=== PATIENT | male | born 1970 | race Caucasian/White ===

== ENCOUNTER 2024-08-24 14:10 | Outpatient (OUT) | payer BC, SELFPAY ==
--- OUTSIDE RECORDS SUMMARY | 2024-08-17 10:00 | XMS_ITS | Encounter Summary ---
Author Organization [facility] tem Address [id number] [address] [place] [address] Care Team Providers Care Auditor Supervisor Name Role Phone Guille Jackson MD Primary Care Provider [phone] Reason for Referral * Consultation (Routine) - Authorized Specialty Diagnoses / Procedures Referred By Contac t Referred To Contact Pain Medicine Diagnoses Herniation of cervical intervertebral disc with radiculopathy Guille Jackson MD [address] [place] [address], [address] [place] [address] Phone: tel: fax: Farheen Cary MD [address] [place] [address] Phone: tel: fax: Referral ID Status Reason Start Date Expiration Date V isits Requested Visits Authorized [id number] Authorized 08/17/2024 08/17/2025 1 1 Reason for Visit * Reason Comments Shoulder Pain Been ongoing for few months. Encounter Details Date Type Department Care Team (Latest Contact Info) Description 08/17/2024 10:00 AM EDT Office Visit [facility] [address] [place] [address] [address] [place] [phone] Guille Jackson MD [address] [place] [address], [address] [place] [address] Herniation of cervical intervertebral disc with radiculopathy (Primary Dx) Social History Tobacco Use Types Packs/Day Years Used Date Smoking Tobacco: Former Cigarettes Q uit: 2000 Smokeless Tobacco: Former Alcohol Use Standard Drinks/Week Comments Yes 0 (1 standard drink = 0.6 oz pur e alcohol) AUDIT-C Answer Date Recorded Q1: How often do you have a drink containing alc ohol? Monthly or less 02/05/2020 Q2: How many drinks containi ng alcohol do you have on a typical day when you are drinking? 1 or 2 02/05/2020 Q3: How often do you have si x or more drinks on one occasion? Never 02/05/2020 Overall Financial Resource Strain (CARDIA) Answe r Date Recorded How hard is it for you to pa y for the very basics like food, housing, medical care, and heating? Not hard at all 08/17/2024 PHQ-2 Answer Date Recorded Total Score 0 03/12/2023 PRAPARE - Transportation Answer Date Re corded In the past 12 months, has l ack of transportation kept you from medical appointments or from getting medications? No 08/02 In the past 12 months, has l ack of transportation kept you from meetings, work, or from getting things needed for daily living? No 08/17/2024 Housing Instability Answer Date Recorde d Are you worried or concerned that in the next two months you may not have stable housing that you own, rent or stay in as a part of a household? No 08/17/2024 Childcare Answer Date Recorded Childcare Unknown 08/13/2018 Employment Answer Date Recorded Employment Unknown 08/13/2018 Hunger Screening Answer Date Recorded Within the past 12 months we worried whether our food would run out before we got money to buy more. Never True 08/17/2024 Within the past 12 months th e food we bought just didn't last and we didn't have money to get more. Never True 08/17/2024 Purpose - Life Answer Date Recorded Purpose and direction in life Unknown Sex and Gender Information Value Date Recorded Sex Assigned at Not on file Legal Sex Male 11:29 AM EDT Gender Identity Not on file Sexual Orientation Not on file documented as of this encounter Last Filed Vital Signs Vital Sign Reading Time Taken Comments Blood Pressure 154/98 08/17/2024 9:50 AM EDT Pulse 99 08/17/2024 9:50 AM EDT Temperature 36.4 C (97.5 F) 08/17/2024 9:50 AM EDT Respiratory Rate - - Oxygen Saturation 97% 08/17/2024 9:50 AM EDT Inhaled Oxygen Concentration - - Weight 101.2 kg (223 lb) 08/17/2024 9:50 AM EDT Height 172.7 cm (5' 8 ) 08/17/2024 9:50 AM EDT Body Mass Index 33.91 08/17/2024 9:50 AM EDT documented in this encounter Progress Notes * Guille Jackson MD - 08/17/2024 10:00 AM EDT Subjective Patient ID: Jaskaran Nolen is a 54 y.o. male. He continues having radicular type pain in his left shoulder area. MRI showed no definite surgical issue. A course of steroids did not really make much difference. He has not had any strength loss. Comes in to discuss possibly seeing pain management. The following portions of the patient's history were reviewed and updated as appropriate: allergies, current medications, past medical history, past social history, past surgical history, and problemlist. Review of Systems Objective Physical Exam Constitutional: Comments: He is not acutely in distress. Neurological: Comments: No fixed neurological deficit in the left upper extremity Assessment/Plan The physical activity that he does at work aggravates this. He is going to be off the next couple of weeks pending input from pain management. Tentative return to work 08/31/24. Diagnoses and all orders for this visit: Herniation of cervical intervertebral disc with radiculopathy - Ambulatory referral to Pain Management ([facility]); Future documented in this encounter Plan of Treatment Upcoming Encounters Date Type Department Care Team (Late st Contact Info) Description 10/22/2024 2:45 PM EDT Office Visit [facility] [address] [place] [address] [address] [place] [address] Guille Jackson MD [address] [place] [address], [address] [place] [address] Scheduled Referrals Name Type Priority Associated Diagnoses Orde r Schedule Ambulatory referral to Pain Management (Non[facility]) Outpatient Referral Routine Herniation of cervical intervertebral disc with radiculopathy 1 Occurrences starting 08/17/2024 until 08/17/2025 documented as of this encounter Visit Diagnoses Diagnosis Herniation of cervical intervertebral disc with radiculopathy- Primary documented in this encounter Additional Health Concerns Assessment Noted Time PHQ-9 Depression Total Score: 0 03/12/19 24 8:58 AM EST A Body Mass Index follow-up plan has been documented for the patient 09/22/2020 10:16 AM EDT documented as of this encounter Care Teams Auditor Supervisor Relationship Specialty Start Date End Date Guille Jackson MD [address] [facility], [address] [place] [address] PCP - General Pediatrics 11/07/18 documented as of this encounter
--- OUTSIDE RECORDS SUMMARY | 2024-08-24 14:13 | XMS_ITS | Clinical Summary ---
Author Organization [facility] Healthcare Address [address] [place] [address] Care Team Providers Care Er Tech Name Role Phone Guille Jackson MD Primary Care Provider [phone] Allergies No known active allergies Medications ALPRAZolam (Xanax) 0.5 MG tablet every 12 (twelve) hours. 06/13/2022 Active Otezla 30 MG tablet every 12 (twelve) hours. Active atorvastatin (Lipitor) 20 MG tablet Take 20 mg by mouth in the morning. 10/16/2021 Active Creatine powder as directed Ac tive naproxen (Naprosyn) 500 MG tablet every 12 (twelve) hours. Active omeprazole (PriLOSEC) [address] capsule 1 (one) time each day at the same time. 10/16/2021 Active Whey Protein powder Take by mouth. Active Active Problems Problem Noted Date Diagnosed Date Psoriasis 08/21/2022 Contracture, left ankle 08/21/2022 Herniation of cervical inter vertebral disc with radiculopathy 05/23/2021 Overview (08/21/2022): Added automatically from request for surgery [id number] Gastroesophageal reflux disease without esophagi tis 02/05/2020 Anxiety 02/05/2020 Family History Medical History Relation Name Comments Alcohol abuse Father Bryan Nolen Hypertension Father Bryan Nolen Asthma Mother Opal Nolen Cancer Mother Opal Nolen COPD Sister 1 Suzette Evans COPD Sister 2 Larisa Iam COPD Sister 3 Amber Vitale Relation Name Status Comments Father Bryan Nolen Mother Opal Nolen Sister 1 Suzette Badillohip Sister 2 Larisa Vitale Sister 3 Amber Vitale Social History Tobacco Use Types Packs/Day Years Used Date Smoking Tobacco: Former Cigarettes 1 19 0 03/04/1983 - 03/04/2002 Alcohol Use Standard Drinks/Week Comments Yes 0 (1 standard drink = 0.6 oz pure alcohol) Occasionally,3-4 drinks less than monthly in the past year AUDIT-C Answer Date Recorded Q1: How often do you have a drink containing alc ohol? Monthly or less 04/30/2023 Q2: How many drinks containi ng alcohol do you have on a typical day when you are drinking? 3 or 4 04/30/2023 Q3: How often do you have si x or more drinks on one occasion? Monthly 04/30/2023 Sex and Gender Information Value Date Recorded Sex Assigned at Male 08/20/2022 10:23 AM EDT Legal Sex Male 11:25 PM EDT Gender Identity Male 08/20/2022 10:23 AM EDT Sexual Orientation Not on file Last Filed Vital Signs Vital Sign Reading Time Taken Comments Blood Pressure - - Pulse - - Temperature - - Respiratory Rate - - Oxygen Saturation - - Inhaled Oxygen Concentration - - Weight 104 kg (230 lb) 05/01/2023 9:48 AM EST Height 172.7 cm (5' 8 ) 05/01/2023 9:48 AM EST Body Mass Index 34.97 05/01/2023 9:48 AM EST Plan of Treatment Health Maintenance Due Date Last Done Comments CT Colonography 1970 Colonoscopy 1970 Colorectal Cancer Screening 1970 FIT-DNA 1970 FIT 1970 FOBT 1970 Sigmoidoscopy 1970 Influenza Vaccine (Season Ended) 2024 Insurance BCBS Care Teams Er Tech Relationship Specialty Start Date End Date Guille Jackson MD PCP - General Family Medicine 08/20/22
--- OUTSIDE RECORDS SUMMARY | 2024-08-24 14:13 | XMS_ITS | Encounter Summary ---
Author Organization [employer] tem Address [facility] [id number] [address] [place] [address] Care Team Providers Care Salvage Engineering Technician Name Role Phone Guille Jackson MD Primary Care Provider [phone] Encounter Details Date Type Department Care Team (Late st Contact Info) Description 05/17/2021 Orders Only [facility] [address] [place] [address] 1 [place] [phone] Guille Jackson MD [address] [place] [address], [address] [place], [place] [phone] Cervical myelopathy ([facility]) Social History Tobacco Use Types Packs/Day Years Used Date Smoking Tobacco: Former Cigarettes Q uit: 2001 Smokeless Tobacco: Former Alcohol Use Standard Drinks/Week [...] more drinks on one occasion? Never 02/05/2020 PHQ-2 Answer Date Recorded Total Score 0 12/22/2020 Childcare Answer Date Recorded Childcare Unknown 08/13/2018 Employment Answer Date Recorded Employment Unknown 08/13/2018 Purpose - Life Answer Date Recorded Purpose and direction in life Unknown Sex and Gender Information Value Date Recorded Sex Assigned at Not on file Legal Sex Male 11:29 AM EDT Gender Identity Not on file Sexual Orientation Not on file COVID-19 Exposure Response Date Recorded In the last month, have you been in contact with someone who was confirmed or suspected to have Coronavirus / COVID-19? No / Unsure 05/01/2021 8:14 AM EST documented as of this encounter Plan of Treatment Upcoming Encounters Date Type Department Care Team (Late st Contact Info) Description 10/22/2024 2:45 PM EDT Office Visit [facility] [address] [place] [address] [address] [place] [phone] Guille Jackson MD [address] [place] [address], [address] [place] [address] documented as of this encounter Procedures Procedure Name Priority Date/Time Associated Diagnosis Comments AMB REFERRAL TO NEUROSURGERY Routine 05/17/2021 Cervical myelopathy ([facility]) documented in this encounter Results * Ambulatory referral to Neurosurgery (05/17/2021) 05/17/2021 us Guille Jackson MD OUTPATIENT REFERRAL ORDERABLE S Final Result MANUALLY TRANSCRIBED RESULTS documented in this encounter Visit Diagnoses Diagnosis Cervical myelopathy ([facility]) Cervical spondylosis with myelopathy documented in this encounter Additional Health Concerns Assessment Noted Time PHQ-9 Depression Total Score: 0 12/23/19 21 10:00 AM EDT A Body Mass Index follow-up plan has been documented for the patient 09/22/2020 10:16 AM EDT documented as of this encounter Care Teams Salvage Engineering Technician Relationship Specialty Start Date End Date Guille Jackson MD [facility], [address] [place] [address] PCP - General Pediatrics 11/07/18 documented as of this encounter
--- OUTSIDE RECORDS SUMMARY | 2024-08-24 14:13 | XMS_ITS | Encounter Summary ---
Author Organization [employer] tem Address [facility] [id number] [address] [place] [address] Care Team Providers Care Division Order Analyst Name Role Phone Guille Jackson MD Primary Care Provider Encounter Details Date Type Department Care Team (Late st Contact Info) Description 03/23/2021 Orders Only [facility] [address] [place] [address] 1 [place] [phone] Guille Jackson MD [address] [place] [address], [address] [place], [place] [phone] Right foot pain Social History Tobacco Use Types Packs/Day Years [...] have Coronavirus / COVID-19? No / Unsure 03/13/2021 8:44 AM EST documented as of this encounter Plan of Treatment Upcoming Encounters Date Type Department Care Team (Late st Contact Info) Description 10/22/2024 2:45 PM EDT Office Visit [facility] [address] [place] [address] [address] [place] [address] Guille Jackson MD [facility], [address] [place], [place] [phone] documented as of this encounter Procedures Procedure Name Priority Date/Time Associated Diagnosis Comments AMB REFERRAL TO PODIATRY Routine 03/22/2021 Right foot pain documented in this encounter Results * Ambulatory referral to Podiatry (03/22/2021) 03/22/2021 us Guille Jackson MD OUTPATIENT REFERRAL ORDERABLE S Final Result MANUALLY TRANSCRIBED RESULTS documented in this encounter Visit Diagnoses Diagnosis Right foot pain Pain in soft tissues of limb documented in this encounter Additional Health Concerns Assessment Noted Time PHQ-9 Depression Total Score: 0 12/23/19 21 10:00 AM EDT A Body Mass Index follow-up plan has been documented for the patient 09/22/2020 10:16 AM EDT documented as of this encounter Care Teams Division Order Analyst Relationship Specialty Start Date End Date Guille Jackson MD [facility], [address] [place], [place] [phone] PCP - General Pediatrics 11/07/18 documented as of this encounter
--- OUTSIDE RECORDS SUMMARY | 2024-08-24 14:13 | XMS_ITS | Encounter Summary ---
Author Organization [employer] tem Address [facility] [id number] [address] [place] [address] Care Team Providers Care Director Of Hospitality Name Role Phone Guille Jackson MD Primary Care Provider [phone] Encounter Details Date Type Department Care Team (Late st Contact Info) Description 09/19/2023 Refill [facility] [address] [place] [address] 1 [place] [phone] Guille Jackson MD [address] [place] [address], [address] [place], [place] [phone] Social History Tobacco Use Types Packs/Day Years [...] Answer Date Recorded Total Score 0 03/12/2023 Childcare Answer Date Recorded Childcare Unknown 08/13/2018 Employment Answer Date Recorded Employment Unknown 08/13/2018 Hunger Screening Answer Date Recorded Within the past 12 months we worried whether our food would run out before we got money to buy more. Never True 03/12/2023 Within the past 12 months th e food we bought just didn't last and we didn't have money to get more. Never True 03/12/2023 Purpose - Life Answer Date Recorded Purpose and direction in life Unknown Sex and Gender Information Value Date Recorded Sex Assigned at Not on file Legal Sex Male 11:29 AM EDT Gender Identity Not on file Sexual Orientation Not on file documented as of this encounter Plan of Treatment Upcoming Encounters Date Type Department Care Team (Late st Contact Info) Description 10/22/2024 2:45 PM EDT Office Visit [facility] [address] [place] [address] [address] [place] [address] Guille Jackson MD [address] [place] [address], [address] [place], [place] [phone] documented as of this encounter Visit Diagnoses Not on filedocumented in this encounter Additional Health Concerns Assessment Noted Time PHQ-9 Depression Total Score: 0 03/12/19 24 8:58 AM EST A Body Mass Index follow-up plan has been documented for the patient 09/22/2020 10:16 AM EDT documented as of this encounter Care Teams Director Of Hospitality Relationship Specialty Start Date End Date Guille Jackson MD [address] [place] [address], [address] [place] [address] PCP - General Pediatrics 11/07/18 documented as of this encounter
--- OUTSIDE RECORDS SUMMARY | 2024-08-24 14:13 | XMS_ITS | Encounter Summary ---
Author Organization [employer] s tem Address [facility] [id number] [address] [place] [address] Care Team Providers Care Executive Pilot Name Role Phone Guille Jackson MD Primary Care Provider [phone] Encounter Details Date Type Department Care Team (Late st Contact Info) Description 07/09/2023 Refill [facility] [address] [place] [address] 1 [place] [phone] Guille Jackson MD [address] [place] [address], [address] [place], [place] [phone] Social History Tobacco Use Types Packs/Day Years [...] EDT Office Visit [facility] [address] [place] [address] [address] [place] [address] Guille Jackson MD [address] [place] [address], [address] [place], [place] [phone] documented as of this encounter Visit Diagnoses Not on filedocumented in this encounter Additional Health Concerns Assessment Noted Time PHQ-9 Depression Total Score: 0 03/12/19 24 8:58 AM EST A Body Mass Index follow-up plan has been documented for the patient 09/22/2020 10:16 AM EDT documented as of this encounter Care Teams Executive Pilot Relationship Specialty Start Date End Date Guille Jackson MD [address] [place] [address], [address] [place] [address] PCP - General Pediatrics 11/07/18 documented as of this encounter
--- OUTSIDE RECORDS SUMMARY | 2024-08-24 14:13 | XMS_ITS | Encounter Summary ---
Author Organization [employer] Address [id number] [address] [place] [address] Care Team Providers Care Weight Analyst Name Role Phone Guille Jackson MD Primary Care Provider [phone] Reason for Visit * Reason Onset Date Comments Med Refill 10/09/2023 Encounter Details Date Type Department Care Team (Late st Contact Info) Description 10/09/2023 Refill [facility] [address] [place] [phone] Guille Jackson MD [address] [place] [address], [address] [place], [place] [phone] Social History Tobacco Use Types Packs/Day Years [...] on file documented as of this encounter Miscellaneous Notes * Telephone Encounter - Geri Vidal CMA - 10/09/2023 5:52 AM EDT Duplicate and patient needs an appointment documented in this encounter Plan of Treatment Upcoming Encounters Date Type Department Care Team (Late st Contact Info) Description 10/22/2024 2:45 PM EDT Office Visit [facility] [address] [place] [address] [address] [place] [phone] Guille Jackson MD [address] [place] [address], [address] [place], [place] [phone] documented as of this encounter Visit Diagnoses Not on filedocumented in this encounter Additional Health Concerns Assessment Noted Time PHQ-9 Depression Total Score: 0 03/12/19 24 8:58 AM EST A Body Mass Index follow-up plan has been documented for the patient 09/22/2020 10:16 AM EDT documented as of this encounter Care Teams Weight Analyst Relationship Specialty Start Date End Date Guille Jackson MD [address] [place] [address], [address] [place] [address] PCP - General Pediatrics 11/07/18 documented as of this encounter
--- OUTSIDE RECORDS SUMMARY | 2024-08-24 14:13 | XMS_ITS | Encounter Summary ---
Author Organization [facility] [employer] Address [facility] [id number] [address] [place] [address] Care Team Providers Care Microsoft Windows Engineer Name Role Phone Guille Jackson MD Primary Care Provider [phone] Reason for Visit * Reason Comments Med Refill Encounter Details Date Type Department Care Team (Late st Contact Info) Description 08/21/2021 Refill [facility] [address] [place] [phone] Guille Jackson MD [address] [place] [address], [address] [place], [place] [phone] Social History Tobacco Use Types Packs/Day Years [...] Telephone Encounter - Geri Vidal CMA - 08/21/2021 1:07 AM EDT Patient needs an appointment and labs for further refill documented in this encounter Plan of Treatment Upcoming Encounters Date Type Department Care Team (Late st Contact Info) Description 10/22/2024 2:45 PM EDT Office Visit [facility] [address] [place] [address] [address] [place] [phone] Guille Jackson MD [address] [place] [address], [address] [place] [address] documented as of this encounter Visit Diagnoses Not on filedocumented in this encounter Additional Health Concerns Assessment Noted Time PHQ-9 Depression Total Score: 0 12/23/19 21 10:00 AM EDT A Body Mass Index follow-up plan has been documented for the patient 09/22/2020 10:16 AM EDT documented as of this encounter Care Teams Microsoft Windows Engineer Relationship Specialty Start Date End Date Guille Jackson MD [address] [place] [address], [address] [place], [place] [phone] PCP - General Pediatrics 11/07/18 documented as of this encounter
--- OUTSIDE RECORDS SUMMARY | 2024-08-24 14:13 | XMS_ITS | Encounter Summary ---
Author Organization [employer] Address [facility] [place]-[id number] [address] [place] [address] Care Team Providers Care Roll Icer Name Role Phone Guille Jackson MD Primary Care Provider [phone] Reason for Visit * Reason Onset Date Comments Med Refill 09/16/2023 Encounter Details Date Type Department Care Team (Late st Contact Info) Description 09/16/2023 Refill [facility] [address] [place] [phone] Guille Jackson MD [address] [place] [address], 1 [place], [place] [phone] Anxiety Social History Tobacco Use Types Packs/Day Years [...] Telephone Encounter - Geri Vidal CMA - 09/16/2023 7:11 PM EDT Phone conversation, [facility] documented in this encounter Plan of Treatment Upcoming Encounters Date Type Department Care Team (Late st Contact Info) Description 10/22/2024 2:45 PM EDT Office Visit [facility] [address] [place] [address] [address] [place] [address] Guille Jackson MD [address] [place] [address], [address] [place] [phone] documented as of this encounter Visit Diagnoses Diagnosis Anxiety Anxiety state, unspecified documented in this encounter Additional Health Concerns Assessment Noted Time PHQ-9 Depression Total Score: 0 03/12/19 24 8:58 AM EST A Body Mass Index follow-up plan has been documented for the patient 09/22/2020 10:16 AM EDT documented as of this encounter Care Teams Roll Icer Relationship Specialty Start Date End Date Guille Jackson MD [address] [place] [address], [address] [place] [address] PCP - General Pediatrics 11/07/18 documented as of this encounter
--- OUTSIDE RECORDS SUMMARY | 2024-08-24 14:13 | XMS_ITS | Encounter Summary ---
Author Organization [facility] Address [address] [place] [address] Care Team Providers Care Sewage Plant Operator Name Role Phone Guille Jackson MD Primary Care Provider [phone] Encounter Details Date Type Department Care Team (Late st Contact Info) Description 05/21/2023 Abstract [facility] [address] [place] [phone] Darrell Perez, DPM [address] [place] [address] Social History Tobacco Use Types Packs/Day Years [...] AM EDT Sexual Orientation Not on file documented as of this encounter Plan of Treatment Not on file documented as of this encounter Visit Diagnoses Not on filedocumented in this encounter Care Teams Sewage Plant Operator Relationship Specialty Start Date End Date Guille Jackson MD PCP - General Family Medicine 08/20/22 documented as of this encounter
--- OUTSIDE RECORDS SUMMARY | 2024-08-24 14:13 | XMS_ITS | Encounter Summary ---
Author Organization [facility] Cuffed and Wanted s tem Address [id number] [address] [place] [address] Care Team Providers Care Acid Cleaner Name Role Phone Guille Jackson MD Primary Care Provider [phone] Encounter Details Date Type Department Care Team (Late st Contact Info) Description 01/31/2021 Orders Only [facility] [address] [phone] External, Scanning Provider Social History Tobacco Use Types Packs/Day Years [...] EDT Office Visit [facility] [address] [place] [address] [address] [place] [phone] Guille Jackson MD [address] [place] [address], [address] [place], [place] [id number] documented as of this encounter Procedures Procedure Name Priority Date/Time Associated Diagnosis Comments HM COLONOSCOPY Routine 10/10/2020 documented in this encounter Results * HM COLONOSCOPY (10/10/2020) 10/10/2020 us Scanning Provider External HEALTH MAINTENANCE Fi nal Result MANUALLY TRANSCRIBED RESULTS documented in this encounter Visit Diagnoses Not on filedocumented in this encounter Additional Health Concerns Infection Onset Date Last Indicated Resolved Time COVID-19 Positive 01/19/2021 01/19/2021 02/09/2021 11:12 PM EST Assessment Noted Time PHQ-9 Depression Total Score: 0 12/23/19 10:00 AM EDT A Body Mass Index follow-up plan has been documented for the patient 09/22/2020 10:16 AM EDT documented as of this encounter Care Teams Acid Cleaner Relationship Specialty Start Date End Date Guille Jackson MD [facility], [address] [place] [address] PCP - General Pediatrics 11/07/18 documented as of this encounter
--- OUTSIDE RECORDS SUMMARY | 2024-08-24 14:13 | XMS_ITS | Encounter Summary ---
Author Organization [facility] Address [id number] [address] [place] [address] Care Team Providers Care Night Patrol Inspector Name Role Phone Guille Jackson MD Primary Care Provider [phone] Encounter Details Date Type Department Care Team (Late st Contact Info) Description 12/12/2020 Orders Only [facility] [address] [phone] External, Scanning Provider Social History Tobacco Use [...] PHQ-2 Answer Date Recorded Total Score 0 02/05/2020 Childcare Answer Date Recorded Childcare Unknown 08/13/2018 [...] EDT Office Visit [facility] [address] [place] [address] [address] [place] [address] Guille Jackson MD [address] [place] [address], [address] [place] [address] documented as of this encounter Procedures Procedure Name Priority Date/Time Associated Diagnosis Comments SARS COV 2 (COVID-19) STAT 12/02/2020 documented in this encounter Results * SARS COV 2 (COVID-19) (12/02/2020) EXTERNAL SARS COV 2 Negative Negative MANUALLY TRANSCRIBED RESULTS Comment:RESULT ATTACHED TO U RGENT CARE VISIT NASOPHARYNGEAL 12/02/2020 us Scanning Provider External MICROBIOLOGY - GENERA L ORDERABLES Final Result MANUALLY TRANSCRIBED RESULTS documented in this encounter Visit Diagnoses Not on filedocumented in this encounter Additional Health Concerns Infection Onset Date Last Indicated Resolved Time COVID-19 Positive 01/19/2021 01/19/2021 02/09/2021 11:12 PM EST Assessment Noted Time PHQ-9 Depression Total Score: 0 02/05/20 10:12 AM EST A Body Mass Index follow-up plan has been documented for the patient 09/22/2020 10:16 AM EDT documented as of this encounter Care Teams Night Patrol Inspector Relationship Specialty Start Date End Date Guille Jackson MD [address] [place] [address], [address] [place] [address] PCP - General Pediatrics 11/07/18 documented as of this encounter
--- OUTSIDE RECORDS SUMMARY | 2024-08-24 14:13 | XMS_ITS | Encounter Summary ---
Author Organization [facility] Cl[employer] s tem Address [id number] [address] [place] [address] Care Team Providers Care Proration Clerk Name Role Phone Guille Jackson MD Primary Care Provider [phone] Encounter Details Date Type Department Care Team (Late st Contact Info) Description 02/17/2020 Orders Only [facility] [address] [phone] External, Scanning Provider Social History Tobacco Use Types Packs/Day Years Used Date Smoking Tobacco: Former Smokeless Tobacco: Former Alcohol Use Standard Drinks/Week [...] Employment Answer Date Recorded Employment Unknown 08/13/2018 Sex and Gender Information Value Date Recorded Sex Assigned at Not on file Legal Sex Male 11:29 AM EDT Gender Identity Not on file Sexual Orientation Not on file COVID-19 Exposure Response Date Recorded In the last month, have you been in contact with someone who was confirmed or suspected to have Coronavirus / COVID-19? No / Unsure 02/05/2020 9:11 AM EST documented as of this encounter Plan of Treatment Upcoming Encounters Date Type Department Care Team (Late st Contact Info) Description 10/22/2024 2:45 PM EDT Office Visit [facility] [address] [place] [address] [address] [place] [address] Guille Jackson MD [address] [place] [address], [address] [place], [place] [phone] documented as of this encounter Procedures Procedure Name Priority Date/Time Associated Diagnosis Comments SARS COV 2 (COVID-19) Routine 02/16/2020 documented in this encounter Results * SARS COV 2 (COVID-19) (02/16/2020) EXTERNAL SARS COV 2 Negative Negative MANUALLY TRANSCRIBED RESULTS NASOPHARYNGEAL 02/16/2020 Narrative MANUALLY TRANSCRIBED RESULTS - 02/16/2020 Result with urgent care note us Scanning Provider External MICROBIOLOGY - GENERA L ORDERABLES Final Result MANUALLY TRANSCRIBED RESULTS documented in this encounter Visit Diagnoses Not on filedocumented in this encounter Additional Health Concerns Infection Onset Date Last Indicated Resolved Time COVID-19 Positive 01/19/2021 01/19/2021 02/09/2021 11:12 PM EST Assessment Noted Time PHQ-9 Depression Total Score: 0 02/05/20 10:12 AM EST documented as of this encounter Care Teams Proration Clerk Relationship Specialty Start Date End Date Guille aJckson MD [address] [place] [address], [address] [place], [place] [phone] PCP - General Pediatrics 11/07/18 documented as of this encounter
--- OUTSIDE RECORDS SUMMARY | 2024-08-24 14:13 | XMS_ITS | Encounter Summary ---
Author Organization [facility] tem Address [facility]-[id number] [address] [place] [address] Care Team Providers Care Auto Air Conditioning Installer Name Role Phone Guille Jackson MD Primary Care Provider [phone] Encounter Details Date Type Department Care Team (Late st Contact Info) Description 03/01/2021 Telephone [facility] [address] [phone] Geri Vidal CMA Social History Tobacco Use Types Packs/Day Years [...] have Coronavirus / COVID-19? No / Unsure 02/16/2021 11:12 AM EST documented as of this encounter Plan of Treatment Upcoming Encounters Date Type Department Care Team (Late st Contact Info) Description 10/22/2024 2:45 PM EDT Office Visit [facility] [address] [place] [address] [address] [place] [phone] Guille Jackson MD [address] [place] [address], [address] [place], [place] [phone] documented as of this encounter Visit Diagnoses Not on filedocumented in this encounter Additional Health Concerns Assessment Noted Time PHQ-9 Depression Total Score: 0 12/23/19 10:00 AM EDT A Body Mass Index follow-up plan has been documented for the patient 09/22/2020 10:16 AM EDT documented as of this encounter Care Teams Auto Air Conditioning Installer Relationship Specialty Start Date End Date Guille Jackson MD [address] [place] [address], [address] [place], [place] [phone] PCP - General Pediatrics 11/07/18 documented as of this encounter
--- OUTSIDE RECORDS SUMMARY | 2024-08-24 14:13 | XMS_ITS | Clinical Summary ---
Author Organization [employer] Address [id number] [address] [place] [address] Care Team Providers Care Business Consultant Name Role Phone Guille Jackson MD Primary Care Provider [phone] Allergies No known active allergies Medications apremilast (OTEZLA) 30 mg tablet Take 1 tablet (30 mg total) by mouth in the morning and 1 tablet (30 mg total) before bedtime. Active omeprazole (PriLOSEC) 20 mg capsule TAKE 1 CAPSULE DAILY 90 capsule 1 03/31/19 25 Active ALPRAZolam (XANAX) 0.5 mg tabletIndications :Anxiety Take 1 tablet (0.5 mg total) by mouth nightly as needed for anxiety. 30 tablet 2 06/13/19 25 Active cyclobenzaprine (FLEXERIL) 10 mg tabletIndications :Herniation of cervical intervertebral disc with radiculopathy Take 1 tablet (10 mg total) by mouth 3 (three) times a day as needed for muscle spasms. 15 tablet 07/11/19 25 Active atorvastatin (LIPITOR) 20 mg tablet Take 1 tablet (20 mg total) by mouth in the morning. 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 05/23/2021 Overview (05/23/2021): Added automatically from request for surgery [id number] Anxiety 02/05/2020 Gastroesophageal reflux disease without esophagi tis 02/05/2020 Psoriasis Resolved Problems Problem Noted Date Diagnosed Date Resolved Date Screening for colon cancer 09/22/2020 0 04/23/2024 Encounters Date Type Department Care Team Description 08/17/2024 10:00 AM EDT Office Visit [facility] [address] [place] [address] Guille Jackson MD Herniation of cervical intervertebral disc with radiculopathy (Primary Dx) 08/17/2024 Travel 08/14/2024 Refill [facility] [address] [place] [address] Guille Jackson MD Anxiety 08/03/2024 1:37 PM EDT - 08/03/2024 11:59 PM EDT Hospital Encounter [facility] [address] [place] [address] Herniation of cervical intervertebral disc with radiculopathy Discharge Disposition: Home 08/01/2024 Travel 07/22/2024 Refill [facility] [address] [place] [address] Guille Jackson MD 07/21/2024 Telephone [facility] [address] [place] [address] Guille Jackson MD 07/14/2024 Refill [facility] [address] [place] [address] Guille Jackson MD 07/14/2024 Refill [facility] [address] [place] [address] Guille Jackson MD Anxiety 07/10/2024 3:45 PM EDT Office Visit [facility] [address] [place] [address] Guille Jackson MD Herniation of cervical intervertebral disc with radiculopathy (Primary Dx) 07/10/2024 Travel 06/22/2024 7:40 AM EDT - 06/22/2024 11:59 PM EDT Hospital Encounter [facility] [address] [place] [address] Routine general medical examination at a health care facility Discharge Disposition: Home 06/22/2024 Refill [facility] [address] [place] [address] Guille Jackson MD 06/22/2024 Travel 06/12/2024 Refill [facility] [address] [place] [address] Guille Jackson MD Anxiety from Last 3 Months Immunizations Immunization Administration Dates Next Due COVID-19, mRNA, LNP-S, PF, 30mcg/0.3mL Dose 06/02,05/23/2020 Family History Medical History Relation Name Comments Heart disease Maternal Grandfather Diabetes Maternal Grandmother Asthma Mother Early Mother Lung cancer Mother Cancer Other uncle Prostate Cancer Heart disease Paternal Grandfather Diabetes Paternal Grandmother Asthma Sister 4 Breast cancer Sister 4 COPD Sister 4 Kidney disease Sister 4 Asthma Sister 5 COPD Sister 5 Relation Name Status Comments Daughter Alive Father Maternal Grandfather Maternal Grandmother Mother Other uncle Alive Paternal Grandfather Paternal Grandmother Sister 1 Alive Sister 2 Alive Sister 3 Alive Sister 4 Sister 5 Son Alive Social History Tobacco Use Types Packs/Day Years Used Date Smoking Tobacco: Former Cigarettes Q uit: 2001 Smokeless Tobacco: Former Tobacco Cessation:Counseling Given: No Alcohol Use Standard Drinks/Week Comments Yes 0 [...] on file Sexual Orientation Not on file Last Filed Vital Signs Vital Sign Reading Time Taken Comments Blood Pressure 154/98 08/17/2024 9:50 AM EDT Pulse 99 08/17/2024 9:50 AM EDT Temperature 36.4 C (97.5 F) 08/17/2024 9:50 AM EDT Respiratory Rate 18 02/11/2023 1:51 PM EST Oxygen Saturation 97% 08/17/2024 9:50 AM EDT Inhaled Oxygen Concentration - - Weight 101.2 kg (223 lb) 08/17/2024 9:50 AM EDT Height 172.7 cm (5' 8 ) 08/17/2024 9:50 AM EDT Body Mass Index 33.91 08/17/2024 9:50 AM EDT Plan of Treatment Upcoming Encounters Date Type Department Care Team (Late st Contact Info) Description 10/22/2024 2:45 PM EDT Office Visit [facility] [address] [place] [address] [address] [place] [address] Guille Jackson MD [address] [place] [address], [address] [place], [place] [phone] Health Maintenance Due Date Last Done Comments Adult BMI Follow Up Plan 01/16/1988 DTaP,Tdap and Td Vaccines (1 - Tdap) 1989 Zoster (Shingles) Vaccine (1 of 2) 01/16/2020 COVID-19 Vaccine (4 - 2023-2 5 season) 2023 03/02/2021, 06/14/2020, 05/23/2020 Depression Screening 03/12/2024 03/12/2023 Influenza Vaccine 11/02/2024 Adult BMI Screening 08/17/2025 08/17/2024 Tobacco Screening 08/17/2025 08/17/2024 Colonoscopy 10/10/2030 10/10/2020 Medical Devices Not on file Procedures Procedure Name Priority Date/Time Associated Diagnosis Comments MR CERVICAL SPINE WO CONT Routine 08/03/2024 2:09 PM EDT Herniation of cervical intervertebral disc with radiculopathy PROSTATIC SPECIFIC ANTIGEN SCREEN Routine 06/22/2024 7:42 AM EDT Routine general medical examination at a health care facility LIPID PROFILE Routine 06/22/2024 7:42 AM EDT Routine general medical examination at a health care facility COMPREHENSIVE METABOLIC PANEL Routine 06/22/2024 7:42 AM EDT Routine general medical examination at a health care facility HM COLONOSCOPY Routine 10/10/2020 from Last 3 Months or Most Recently Relevant to Health Maintenance Results * MR cervical spine without contrast (08/03/2024 2:09 PM EDT) Anatomical Region Laterality Modality MSK, Neuro, Spine, C-spine, Spine Covera N/A Magnetic Resonance 08/06/2024 3:13 PM EDT Narrative 08/06/2024 3:21 PM EDT MR CERVICAL SPINE WO CONT CLINICAL INFORMATION: Neck pain and radiculopathy. Patient is complaining of numbness and tingling in the left hand for 3 weeks. COMPARISON: 05/01/2021 TECHNIQUE: Multisequence, multiplane MRI of the cervical spine performed without contrast. FINDINGS: The vertebral body heights and alignment are maintained with disc space narrowing and bony spurring at C5-C7 level. The cervicomedullary junction is normal. There is mild reversal of cervical lordosis likely from muscle spasm. The paravertebral soft tissues are unremarkable. The bone marrow signal is within normal limits. The spinal cord signal is within normal limits. C2-3: No disc herniation or spinal stenosis. No significant neural foraminal narrowing. C3-4: Focal eccentric disc protrusion to the right side of midline and extending to the right subarticular region was mild right neural foramen narrowing but no canal stenosis or cord compression. C4-5: Small central disc bulge effacing the anterior thecal sac but without canal stenosis or cord compression. Neuroforamina are patent bilaterally. C5-6: Broad-based central spondylotic disc bulge effacing the anterior thecal sac was mild acquired canal stenosis but no cord compression or abnormal cord signal. There is facet joint hypertrophy and bilateral moderate neural foramen narrowing slightly more prominent on the left side. C6-7: Broad-based central spondylotic disc bulge effacing the anterior thecal sac. There is no significant cord compression or neural foramen narrowing. C7-T1: Small central spondylotic disc bulge effacing the anterior thecal sac with mild acquired canal stenosis but no cord compression or abnormal cord signal. There is bilateral moderate neural foramen narrowing. IMPRESSION: * Mild multilevel cervical spondylosis mainly seen from C5 to C7 as described above without significant interval change since prior examination. Finalized by Marge Mckeon MD on 08/06/2024 3:21 PM Procedure Note Marge Mckeon MD - 08/06/2024 MR CERVICAL SPINE WO CONT CLINICAL INFORMATION: Neck pain and radiculopathy. Patient is complainingof numbness and tingling in the left hand for 3 weeks. COMPARISON: 05/01/2021 TECHNIQUE: Multisequence, multiplane MRI of the cervical spine performedwithout contrast. FINDINGS: The vertebral body heights and alignment are maintained with disc spacenarrowing and bony spurring at C5-C7 level. The cervicomedullary junctionis normal. There is mild reversal of cervical lordosis likely from musclespasm. The paravertebral soft tissues are unremarkable. The bone marrowsignal is within normal limits. The spinal cord signal is within normallimits. C2-3: No disc herniation or spinal stenosis. No significant neuralforaminal narrowing. C3-4: Focal eccentric disc protrusion to the right side of midline andextending to the right subarticular region was mild right neural foramennarrowing but no canal stenosis or cord compression. C4-5: Small central disc bulge effacing the anterior thecal sac butwithout canal stenosis or cord compression. Neuroforamina are patentbilaterally. C5-6: Broad-based central spondylotic disc bulge effacing the anteriorthecal sac was mild acquired canal stenosis but no cord compression orabnormal cord signal. There is facet joint hypertrophy and bilateralmoderate neural foramen narrowing slightly more prominent on the leftside. C6-7: Broad-based central spondylotic disc bulge effacing the anteriorthecal sac. There is no significant cord compression or neural foramennarrowing. C7-T1: Small central spondylotic disc bulge effacing the anterior thecalsac with mild acquired canal stenosis but no cord compression or abnormalcord signal. There is bilateral moderate neural foramen narrowing. IMPRESSION: * Mild multilevel cervical spondylosis mainly seen from C5 to C7 asdescribed above without significant interval change since priorexamination. Finalized by Marge Mckeon MD on 08/06/2024 3:21 PM us Guille Jackson MD [facility] MRI ORDERABLES Final Resu lt * Prostatic specific antigen screen (06/22/2024 7:42 AM EDT) Pathologist [facility] Prostatic specific antigen, screen 2.39 0.00 - 4.00 ng/mL 06/22/2024 2:29 PM EDT [facility] Comment: The method used for this test is Loretta Ghent DXI chemiluminescent immunoassay. Values obtained by different assay methods cannot be used interchangeably. Serum / Unknown 06/22/2024 7 :42 AM EDT 06/22/2024 7:43 AM EDT us Guille Jackson MD LAB BLOOD ORDERABLES Final Re sult [facility] [address] [facility] [facility], [address] [place] [address] * (ABNORMAL) Lipid profile (06/22/2024 7:42 AM EDT) Cholesterol 143(L) 150 - 200 mg/dL 06/22/2024 2:22 PM EDT [facility] Triglycerides 100 27 - 150 mg/dL 06/22/2024 2:22 PM EDT [facility] HDL Cholesterol 44 >39 mg/dL 2:22 PM EDT [facility] Comment: HDL <40 mg/dL - High Risk HDL > or = 40mg/dL- Desirable HDL >60 mg/dL - Negative Risk VLDL 20 0 - 30 mg/dL 06/22/2024 2:22 PM EDT [facility] LDL (calc) 79 <130 mg/dL 06/22/2024 2:22 PM EDT [facility] Comment: LDL <100 mg/dL - Desirable LDL >160 mg/dL - High Risk Cholesterol:HDL Ratio 3.3 1.0 - 5.0 06/22/2024 2:22 PM EDT [facility] Blood (PLASMA) 06/22/2024 7: 42 AM EDT 06/22/2024 7:43 AM EDT us Guille Jackson MD LAB BLOOD ORDERABLES Final Re sult [facility] [address] [facility] [place] [address] * Comprehensive metabolic panel (06/22/2024 7:42 AM EDT) Sodium 141 134 - 146 mmol/L 06/22/2024 2:22 PM EDT [facility] Potassium, Bld 4.3 3.5 - 5.0 mmol/L 06/22/2024 2:22 PM EDT [facility] Chloride 103 98 - 109 mmol/L 06/22/2024 2:22 PM EDT [facility] CO2 31 22 - 32 mmol/L 06/22/2024 2:22 PM EDT [facility] Anion gap 7 5 - 15 mmol/L 06/22/2024 2:22 PM EDT [facility] BUN 15 5 - 23 mg/dL 06/22/2024 2:22 PM EDT [facility] Creatinine 0.96 0.60 - 1.30 mg/dL 06/22/2024 2:22 PM EDT [facility] Comment:METHOD TRACEABLE TO IDMS STANDARD Glucose 99 65 - 99 mg/dL 06/22/2024 2:22 PM EDT [facility] Calcium 9.6 8.5 - 10.5 mg/dL 06/22/2024 2:22 PM EDT [facility] Total Protein 6.9 6.0 - 8.0 g/dL 06/22/2024 2:22 PM EDT [facility] Albumin 4.3 3.2 - 5.3 g/dL 06/22/2024 2:22 PM EDT [facility] Alkaline Phosphatase 41 39 - 130 U/L 06/22/2024 2:22 PM EDT [facility] AST 15 0 - 41 U/L 06/22/2024 2:22 PM EDT [facility] ALT 17 0 - 40 U/L 06/22/2024 2:22 PM EDT [facility] Total bilirubin 0.4 0.3 - 1.2 mg/dL 06/22/2024 2:22 PM EDT [facility] eGFR (CKD-EPI)non-rac e dependent >90 >59 ml/min/1.7 3sq.m 06/22/2024 2:22 PM EDT [facility] Comment: Reported eGFR is based on the CKD-EPI 2020 equation that does not use a race coefficient. Blood (PLASMA) 06/22/2024 7: 42 AM EDT 06/22/2024 7:43 AM EDT us Guille Jackson MD LAB BLOOD ORDERABLES Final Re sult [facility] [address] [facility], [address] [place] [address] * HM COLONOSCOPY (10/10/2020) 10/10/2020 us Scanning Provider External HEALTH MAINTENANCE Fi nal Result MANUALLY TRANSCRIBED RESULTS from Last 3 Months or Most Recently Relevant to Health Maintenance Insurance Care Teams Business Consultant Relationship Specialty Start Date End Date Guille Jackson MD [address] [place] [address], [address] [place] [phone] PCP - General Pediatrics 11/07/18
--- OUTSIDE RECORDS SUMMARY | 2024-08-24 14:13 | XMS_ITS | Encounter Summary ---
Author Organization [facility] Address [address] [place] [address] Care Team Providers Care Machine Stripper Name Role Phone Guille Jackson MD Primary Care Provider Encounter Details Date Type Department Care Team (Late st Contact Info) Description 05/21/2023 Abstract [facility] [address] [place] [phone] Darrell Perez, DPM [address] [place] [address] Social History Tobacco Use Types Packs/Day Years [...] on filedocumented in this encounter Care Teams Machine Stripper Relationship Specialty Start Date End Date Guille Jackson MD PCP - General Family Medicine 08/20/22 documented as of this encounter
--- OUTSIDE RECORDS SUMMARY | 2024-08-24 14:13 | XMS_ITS | Encounter Summary ---
Author Organization [employer] Address [facility] [place][id number] [address] [place] [address] Care Team Providers Care Bale Stacker Name Role Phone Guille Jackson MD Primary Care Provider [phone] Reason for Visit * Reason Onset Date Comments Med Refill 12/04/2021 Encounter Details Date Type Department Care Team (Late st Contact Info) Description 12/04/2021 Refill [facility] [address] [place] [phone] Guille Jackson MD [address] [place] [address], 1 [place], [place] [phone] Anxiety Social History Tobacco Use Types Packs/Day [...] have Coronavirus / COVID-19? No / Unsure 11/27/2021 9:07 AM EDT documented as of this encounter Plan of Treatment Upcoming Encounters Date Type Department Care Team (Late st Contact Info) Description 10/22/2024 2:45 PM EDT Office Visit [facility] [address] [place] [address] [address] [place] [address] Guille Jackson MD [address] [place] [address], [address] [place], [place] [id number] documented as of this encounter Visit Diagnoses Diagnosis Anxiety Anxiety state, unspecified documented in this encounter Additional Health Concerns Assessment Noted Time PHQ-9 Depression Total Score: 0 12/23/19 21 10:00 AM EDT A Body Mass Index follow-up plan has been documented for the patient 09/22/2020 10:16 AM EDT documented as of this encounter Care Teams Bale Stacker Relationship Specialty Start Date End Date Guille Jackson MD [address] [place] [address], [address] [place] [address] PCP - General Pediatrics 11/07/18 documented as of this encounter
--- OUTSIDE RECORDS SUMMARY | 2024-08-24 14:13 | XMS_ITS | Encounter Summary ---
Author Organization [employer] Address [facility] [id number] [address] [place] [address] Care Team Providers Care Load Blocker Name Role Phone Guille Jackson MD Primary Care Provider [phone] Reason for Visit * Reason Comments Med Refill Encounter Details Date Type Department Care Team (Late st Contact Info) Description 01/22/2020 Refill [facility] [address] [place] [phone] Guille Jackson MD [address] [place] [address], [address] [place], [place] [phone] Social History Tobacco Use Types Packs/Day Years Used Date Smoking Tobacco: Never Assessed Childcare Answer Date Recorded Childcare Unknown 08/13/2018 Employment Answer Date Recorded Employment Unknown 08/13/2018 Sex and Gender Information Value Date Recorded Sex Assigned at Not on file Legal Sex Male 11:29 AM EDT Gender Identity Not on file Sexual Orientation Not on file documented as of this encounter Plan of Treatment Upcoming Encounters Date Type Department Care Team (Late Contact Info) Description 10/22/2024 2:45 PM EDT Office Visit [facility] [address] [place] [phone] Guille Jackson MD [address] [place] [address], [address] [place], [place] [phone] documented as of this encounter Visit Diagnoses Not on filedocumented in this encounter Additional Health Concerns Infection Onset Date Last Indicated Resolved Time COVID-19 Positive 01/19/2021 01/19/2021 02/09/2021 11:12 PM EST documented as of this encounter Care Teams Load Blocker Relationship Specialty Start Date End Date Guille Jackson MD [address] [place] [address], 1 [place] [address] PCP - General Pediatrics 11/07/18 documented as of this encounter
--- OUTSIDE RECORDS SUMMARY | 2024-08-24 14:13 | XMS_ITS | Encounter Summary ---
Author Organization [facility] Address [facility] [id number] [address] [place] [address] Care Team Providers Care Software Sales Representative Name Role Phone Guille Jackson MD Primary Care Provider [phone] Encounter Details Date Type Department Care Team (Late st Contact Info) Description 10/12/2021 Orders Only [facility] [address] [phone] External, Scanning Provider Social History Tobacco Use [...] EDT Office Visit [facility] [address] [place] [address] [address] [place] [phone] Guille Jackson MD [address] [place] [address], [address] [place], [place] [id number] documented as of this encounter Procedures Procedure Name Priority Date/Time Associated Diagnosis Comments SARS COV 2 (COVID-19) STAT 10/08/2021 documented in this encounter Results * SARS COV 2 (COVID-19) (10/08/2021) EXTERNAL SARS COV 2 Negative Negative MANUALLY TRANSCRIBED RESULTS Comment:result in urgent car e encounter NASOPHARYNGEAL 10/08/2021 us Scanning Provider External MICROBIOLOGY - GENERA [...] documented as of this encounter Care Teams Software Sales Representative Relationship Specialty Start Date End Date Guille Jackson MD [address] [place] [address], [address] [place] [address] PCP - General Pediatrics 11/07/18 documented as of this encounter
--- OUTSIDE RECORDS SUMMARY | 2024-08-24 14:13 | XMS_ITS | Encounter Summary ---
Author Organization [facility],[id number] s tem Address [facility] [place]-[id number] [address] [place] [address] Care Team Providers Care Calendering Machine Operator Name Role Phone Guille Jackson MD Primary Care Provider [phone] Reason for Visit * Reason Comments Med Refill Encounter Details Date Type Department Care Team (Late st Contact Info) Description 09/19/2023 Refill [facility] [address] [place] [phone] Guille Jackson MD [address] [place] [address], 1 [place], [place] [phone] Anxiety Social History Tobacco Use Types Packs/Day [...] Telephone Encounter - Geri Vidal CMA - 09/19/2023 2:49 PM EDT duplicate documented in this encounter Plan of Treatment Upcoming Encounters Date Type Department Care Team (Late st Contact Info) Description 10/22/2024 2:45 PM EDT Office Visit [facility] [address] [place] [address] [address] [place] [address] Guille Jackson MD [address] [place] [address], [address] [place] [phone] documented as of this encounter Visit Diagnoses Diagnosis Anxiety Anxiety state, unspecified documented in this encounter Additional Health Concerns Assessment Noted Time PHQ-9 Depression Total Score: 0 03/12/19 24 8:58 AM EST A Body Mass Index follow-up plan has been documented for the patient 09/22/2020 10:16 AM EDT documented as of this encounter Care Teams Calendering Machine Operator Relationship Specialty Start Date End Date Guille Jackson MD [address] [place] [address], [address] [place], [place] [phone] PCP - General Pediatrics 11/07/18 documented as of this encounter
--- OUTSIDE RECORDS SUMMARY | 2024-08-24 14:13 | XMS_ITS | Encounter Summary ---
Author Organization [facility] Address [address] [place] [address] Care Team Providers Care Harvesting Supervisor Name Role Phone Guille Jackson MD Primary Care Provider [phone] Encounter Details Date Type Department Care Team (Late st Contact Info) Description 09/06/2022 Abstract [facility] [address] [place] [phone] Darrell Perez, DPM [address] [place] [address] Social History Tobacco Use Types Packs/Day Years Used Date Smoking Tobacco: Former Cigarettes 1 19 0 03/04/1983 - 03/04/2002 Alcohol Use Standard Drinks/Week Comments Yes 0 (1 standard drink = 0.6 oz pure alcohol) Occasionally,3-4 drinks less than monthly in the past year Sex and Gender Information Value Date Recorded Sex Assigned at Male 08/20/2022 10:23 AM EDT Legal Sex Male 11:25 PM EDT Gender Identity Male 08/20/2022 10:23 AM EDT Sexual Orientation Not on file COVID-19 Exposure Response Date Recorded In the last 10 days, have yo u been in contact with someone who was confirmed or suspected to have Coronavirus/COVID-19? No / Unsure 08/20/2022 10:32 AM EDT documented as of this encounter Plan of Treatment Not on file documented as of this encounter Visit Diagnoses Not on filedocumented in this encounter Care Teams Harvesting Supervisor Relationship Specialty Start Date End Date Guille Jackson MD PCP - General Family Medicine 08/20/22 documented as of this encounter
--- OUTSIDE RECORDS SUMMARY | 2024-08-24 14:13 | XMS_ITS | Encounter Summary ---
Author Organization [facility] Address [facility] [place]-[id number] [address] [place] [address] Care Team Providers Care Slitting Machine Operator Helper Name Role Phone Guille Jackson MD Primary Care Provider [phone] Reason for Visit * Reason Onset Date Comments Med Refill 06/07/2023 Encounter Details Date Type Department Care Team (Late st Contact Info) Description 06/07/2023 Refill [facility] [address] [phone] Geri Vidal CMA Social History Tobacco Use [...] EDT Office Visit [facility] [address] [place] [address] [address] [place] [address] Guille Jackson MD [address] [place] [address], [address] [place] [address] documented as of this encounter Visit Diagnoses Not on filedocumented in this encounter Additional Health Concerns Assessment Noted Time PHQ-9 Depression Total Score: 0 03/12/19 24 8:58 AM EST A Body Mass Index follow-up plan has been documented for the patient 09/22/2020 10:16 AM EDT documented as of this encounter Care Teams Slitting Machine Operator Helper Relationship Specialty Start Date End Date Guille Jackson MD [address] [place] [address], [address] [place] [address] PCP - General Pediatrics 11/07/18 documented as of this encounter
--- OUTSIDE RECORDS SUMMARY | 2024-08-24 14:13 | XMS_ITS | Encounter Summary ---
Author Organization [facility] [employer] s tem Address [facility] [place]-[id number] [address] [place] [address] Care Team Providers Care Hazardous Substances Engineer Name Role Phone Guille Jackson MD Primary Care Provider [phone] Encounter Details Date Type Department Care Team (Late st Contact Info) Description 01/20/2021 Orders Only [facility] [address] [phone] External, Scanning Provider Social History Tobacco Use [...] or suspected to have Coronavirus / COVID-19? Yes 12/22/2020 9:54 AM EDT documented as of this encounter Plan of Treatment Upcoming Encounters Date Type Department Care Team (Late st Contact Info) Description 10/22/2024 2:45 PM EDT Office Visit [facility] [address] [place] [address] [address] [place] [phone] Guille Jackson MD [address] [place] [address], [address] [place] [phone] documented as of this encounter Procedures Procedure Name Priority Date/Time Associated Diagnosis Comments SARS COV 2 (COVID-19) STAT 01/19/2021 documented in this encounter Results * (ABNORMAL) SARS COV 2 (COVID-19) (01/19/2021) EXTERNAL SARS COV 2 Positive( A) Negative MANUALLY TRANSCRIBED RESULTS Comment:Result attached to u rgent care visit NASOPHARYNGEAL 01/19/2021 us Scanning Provider External MICROBIOLOGY - GENERA [...] documented as of this encounter Care Teams Hazardous Substances Engineer Relationship Specialty Start Date End Date Guille Jackson MD [address] [place] [address], [address] [place] [address] PCP - General Pediatrics 11/07/18 documented as of this encounter
--- OUTSIDE RECORDS SUMMARY | 2024-08-24 14:13 | XMS_ITS | Encounter Summary ---
Author Organization [employer] Address [facility] [id number] [address] [place] [address] Care Team Providers Care Cadmium Liquor Maker Name Role Phone Guille Jackson MD Primary Care Provider [phone] Encounter Details Date Type Department Care Team (Late st Contact Info) Description 07/14/2024 Refill [facility] [address] [place] [address] 1 [place] [phone] Guille Jackson MD [address] [place] [address], [address] [place], [place] [phone] Social History Tobacco Use Types Packs/Day Years [...] EDT Office Visit [facility] [address] [place] [address] [address] [place] [address] Guille Jackson MD [address] [place] [address], [address] [place], [place] [phone] documented as of this encounter Visit Diagnoses Not on filedocumented in this encounter Additional Health Concerns Assessment Noted Time PHQ-9 Depression Total Score: 0 03/12/19 24 8:58 AM EST A Body Mass Index follow-up plan has been documented for the patient 09/22/2020 10:16 AM EDT documented as of this encounter Care Teams Cadmium Liquor Maker Relationship Specialty Start Date End Date Guille Jackson MD [address] [place] [address], [address] [place] [address] PCP - General Pediatrics 11/07/18 documented as of this encounter
--- OUTSIDE RECORDS SUMMARY | 2024-08-24 14:13 | XMS_ITS | Encounter Summary ---
Author Organization [employer] Address [facility] [id number] [address] [place] [address] Care Team Providers Care Cap Lining Machine Operator Name Role Phone Guille Jackson MD Primary Care Provider [phone] Reason for Visit * Reason Onset Date Comments Med Refill 12/17/2023 Encounter Details Date Type Department Care Team (Late st Contact Info) Description 12/17/2023 Refill [facility] [address] [place] [address] 1 [place] [phone] Guille Jackson MD [address] [place] [address], 1 [place], [place] [phone] Anxiety Social History Tobacco Use Types Packs/Day [...] EDT Office Visit [facility] [address] [place] [address] [address] [place] [address] Guille Jackson MD [address] [place] [address], [address] [place], [place] [phone] documented as of this encounter Visit Diagnoses Diagnosis Anxiety Anxiety state, unspecified documented in this encounter Additional Health Concerns Assessment Noted Time PHQ-9 Depression Total Score: 0 03/12/19 24 8:58 AM EST A Body Mass Index follow-up plan has been documented for the patient 09/22/2020 10:16 AM EDT documented as of this encounter Care Teams Cap Lining Machine Operator Relationship Specialty Start Date End Date Guille Jackson MD [address] [place] [address], [address] [place], [place] [phone] PCP - General Pediatrics 11/07/18 documented as of this encounter
--- OUTSIDE RECORDS SUMMARY | 2024-08-24 14:13 | XMS_ITS | Encounter Summary ---
Author Organization [employer] Address [facility] [place]-[id number] [address] [place] [address] Care Team Providers Care Slot Machine Mechanic Name Role Phone Guille Jackson MD Primary Care Provider [phone] Reason for Visit * Reason Onset Date Comments Med Refill 05/29/2021 Encounter Details Date Type Department Care Team (Late st Contact Info) Description 05/29/2021 Refill [facility] [address] [place] [phone] Guille Jackson MD [address] [place] [address], 1 [place], [place] [phone] Anxiety Social History Tobacco Use Types Packs/Day [...] suspected to have Coronavirus/COVID-19? No / Unsure 05/25/2021 9:59 AM EDT documented as of this encounter Miscellaneous Notes * Telephone Encounter - Geri Vidal CMA - 05/29/2021 10:50 AM EDT duplicate documented in this encounter Plan of Treatment Upcoming Encounters Date Type Department Care Team (Late st Contact Info) Description 10/22/2024 2:45 PM EDT Office Visit [facility] [address] [place] [address] [address] [place] [phone] Guille Jackson MD [address] [place] [address], [address] [place], [place] [phone] documented as of this encounter Visit Diagnoses Diagnosis Anxiety Anxiety state, unspecified documented in this encounter Additional Health Concerns Assessment Noted Time PHQ-9 Depression Total Score: 0 12/23/19 21 10:00 AM EDT A Body Mass Index follow-up plan has been documented for the patient 09/22/2020 10:16 AM EDT documented as of this encounter Care Teams Slot Machine Mechanic Relationship Specialty Start Date End Date Guille Jackson MD [address] [place] [address], [address] [place], [place] [phone] PCP - General Pediatrics 11/07/18 documented as of this encounter
--- OUTSIDE RECORDS SUMMARY | 2024-08-24 14:13 | XMS_ITS | Encounter Summary ---
Author Organization [employer] Address [facility] [id number] [address] [place] [address] Care Team Providers Care Cannoneer Name Role Phone Guille Jackson MD Primary Care Provider [phone] Reason for Visit * Reason Onset Date Comments Med Refill 11/11/2023 Encounter Details Date Type Department Care Team (Late st Contact Info) Description 11/11/2023 Refill [facility] [address] [place] [phone] Guille Jackson MD [address] [place] [address], 1 [place], [place] [phone] Anxiety Social History Tobacco Use Types Packs/Day [...] Telephone Encounter - Geri Vidal CMA - 11/11/2023 7:18 AM EDT Alprazolam due, was given 1 year in 03/2023 [facility]atin to [facility]. documented in this encounter Plan of Treatment Upcoming Encounters Date Type Department Care Team (Late st Contact Info) Description 10/22/2024 2:45 PM EDT Office Visit [facility] [address] [place] [address] [address] [place] [address] Guille Jackson MD [address] [place] [address], [address] [place], [place] [phone] documented as of this encounter Visit Diagnoses Diagnosis Anxiety Anxiety state, unspecified documented in this encounter Additional Health Concerns Assessment Noted Time PHQ-9 Depression Total Score: 0 03/12/19 24 8:58 AM EST A Body Mass Index follow-up plan has been documented for the patient 09/22/2020 10:16 AM EDT documented as of this encounter Care Teams Cannoneer Relationship Specialty Start Date End Date Guille Jackson MD [address] [place] [address], [address] [place] [address] PCP - General Pediatrics 11/07/18 documented as of this encounter
--- OUTSIDE RECORDS SUMMARY | 2024-08-24 14:14 | XMS_ITS | Encounter Summary ---
Author Organization [employer] [facility] tem Address [facility] [id number] [address] [place] [address] Care Team Providers Care Slat Pickler Name Role Phone Guille Jackson MD Primary Care Provider [phone] Encounter Details Date Type Department Care Team (Latest Contact Info) Description 08/17/2024 Travel Social History Tobacco Use Types Packs/Day Years [...] EDT Office Visit [facility] [address] [place] [address] [address] [place] [address] Guille Jackson MD [address] [place] [address], [address] [place], [place] [phone] documented as of this encounter Visit Diagnoses Not on filedocumented in this encounter Additional Health Concerns Assessment Noted Time PHQ-9 Depression Total Score: 0 03/12/19 24 8:58 AM EST A Body Mass Index follow-up plan has been documented for the patient 09/22/2020 10:16 AM EDT documented as of this encounter Care Teams Slat Pickler Relationship Specialty Start Date End Date Guille Jackson MD [address] [place] [address], [address] [place] [address] PCP - General Pediatrics 11/07/18 documented as of this encounter
--- OUTSIDE RECORDS SUMMARY | 2024-08-24 14:14 | XMS_ITS | Encounter Summary ---
Author Organization [employer] Address [facility] [id number] [address] [place] [address] Care Team Providers Care Teacher Asst Name Role Phone Guille Jackson MD Primary Care Provider [phone] Reason for Visit * Reason Onset Date Comments Med Refill 08/14/2024 Encounter Details Date Type Department Care Team (Late st Contact Info) Description 08/14/2024 Refill [facility] [address] [place] [phone] Guille Jackson MD [address] [place] [address], 1 [place], [place] [phone] Anxiety Social History Tobacco Use Types Packs/Day [...] Office Visit [facility] [address] [place] [address] [address] [place] [address] Guille Jackson MD [address] [place] [address], [address] [place], [place] [phone] documented as of this encounter Visit Diagnoses Diagnosis Anxiety Anxiety state, unspecified documented in this encounter Additional Health Concerns Assessment Noted Time PHQ-9 Depression Total Score: 0 03/12/19 24 8:58 AM EST A Body Mass Index follow-up plan has been documented for the patient 09/22/2020 10:16 AM EDT documented as of this encounter Care Teams Teacher Asst Relationship Specialty Start Date End Date Guille Jackson MD [address] [place] [address], [address] [place], [place] [phone] PCP - General Pediatrics 11/07/18 documented as of this encounter
--- OUTSIDE RECORDS SUMMARY | 2024-08-24 14:14 | XMS_ITS | Encounter Summary ---
Author Organization [email or web address] Address [facility] [place][id number] [address] [place] [address] Care Team Providers Care Terrazzo Worker Apprentice Name Role Phone Guille Jackson MD Primary Care Provider Reason for Visit * Reason Onset Date Comments Med Refill 12/16/2022 Encounter Details Date Type Department Care Team (Late st Contact Info) Description 12/16/2022 Refill [facility] [address] [place] [phone] Guille Jackson MD [address] [place] [address], 1 [place], [place] [phone] Anxiety Social History Tobacco Use Types Packs/Day [...] Telephone Encounter - Geri Vidal CMA - 12/16/2022 8:56 PM EDT Duplicate request documented in this encounter Plan of Treatment Upcoming Encounters Date Type Department Care Team (Late st Contact Info) Description 10/22/2024 2:45 PM EDT Office Visit [facility] [address] [place] [address] [address] [place] [phone] Guille Jackson MD [address] [place] [address], [address] [place], [place] [phone] documented as of this encounter Visit Diagnoses Diagnosis Anxiety Anxiety state, unspecified documented in this encounter Additional Health Concerns Assessment Noted Time PHQ-9 Depression Total Score: 0 12/23/19 10:00 AM EDT A Body Mass Index follow-up plan has been documented for the patient 09/22/2020 10:16 AM EDT documented as of this encounter Care Teams Terrazzo Worker Apprentice Relationship Specialty Start Date End Date Guille Jackson MD [address] [place] [address], [address] [place], [place] [phone] PCP - General Pediatrics 11/07/18 documented as of this encounter
--- NOTE | 2024-08-24 15:23 | PM.CN ---
Consult Note: HPI Data of Consult Patient: new to practice Consult date: 08/24/24 Requesting Physician: Farheen Cary MD Primary Care Provider: SHERRON DOWLING Consult Narrative Reason for consult: left neck, shoulder, arm pain Narrative: 54yom who presents for evaluation. worsening pain that radiates from neck into left shoulder and left arm. notes numbness and tingling primarily in third through fifth fingers of left hand. imaging reviewed, significant for multilevel spondylosis, as well as moderate stenosis at c5-6 and c7-t1. has completed physical therapy, currently continues in chiropractic therapy. uses otc meds as needed. cc:: CC: Farheen Cary MD Review of Systems ROS Status of ROS 10 or more systems reviewed and unremarkable except as noted in history and below [facility] Medical History (Updated 08/24/24 @ 15:26 by Elizabeth Simons) Former smoker, stopped smoking in distant past ?Z87.891 - Personal history of nicotine dependence (ICD-10) High blood cholesterol level ?E78.00 - Pure hypercholesterolemia, unspecified (ICD-10) Meds Home Medications and Allergies Home Medications ?Medication ?Instructions ?Recorded ?Confirmed ?Type alprazolam 0.5 mg tablet 0.5 mg PO DAILY 08/24/24 08/24/24 History apremilast 30 mg tablet (Otezla) 30 mg PO BID 08/24/24 08/24/24 History atorvastatin 20 mg tablet 20 mg PO DAILY 08/24/24 08/24/24 History omeprazole 20 mg capsule,delayed 20 mg PO DAILY 08/24/24 08/24/24 History release Allergies Allergy/AdvReac Type Severity Reaction Status Date / Time No Known Drug Allergies Allergy Verified 08/24/24 15:23 Exam Narrative Exam Narrative: Psych-alert and oriented x 3.? Attentive and appropriate, constitutionally normal, displays normal mood and affect per situation.? There are no obvious deficits in memory, reasoning, or intellect.? Skin-no obvious rashes, bruising, or erythema noted to the patient's area of pain.? Extremities-upper extremities are warm with minimal edema and palpable pulses. Cervical- tenderness to palpation noted in the cervical spine and paraspinal musculature.? Pain is elicited with flexion, extension, and lateral rotation of the cervical spine.? Range of motion is diminished due to pain. Facet loading maneuvers are positive. Strength-unremarkable and within normal limits Sensory-no notable sensory deficits in the bilateral upper extremities to touch or pinprick with the exception to decreased sensation to the left c6, 7, 8 dermatomal distribution.? Coordination remains intact.? Gait remains non-antalgic. Assessment and Plan Assessment and Plan (1) Cervical stenosis of spinal canal: (2) Cervical radiculopathy: Plan 54yom who presents for evaluation. failed conservative measures, as noted. imaging reviewed, as noted. given symptoms and imaging, prudent to attempt left c5-6, c7-t1 tfesi x2 under fluoroscopic guidance. he is in agreement. meds reviewed, no changes. follow up after procedure.
== END 2024-08-24 14:11 | disposition home or self-care (01) ==
PROVIDERS: PCP Internal Medicine; Visit Provider Anesthesiology
DX: M48.02 Spinal stenosis, cervical region (principal); M54.12 Radiculopathy, cervical region
CPT/HCPCS: G0463

== ENCOUNTER 2024-08-31 08:34 | Day surgery (SDC) | payer BC, SELFPAY ==
[2024-08-31 08:45] VITALS: BP 159/97; PULSE 104; TEMP 36.9; O2SAT 97
[2024-08-31 09:24] VITALS: BP 173/102; PULSE 106; O2SAT 96
[2024-08-31 09:25] VITALS: BP 176/107; PULSE 108; O2SAT 96
[2024-08-31] MEDS: DEXAMETHASONE SOD PHOS 10 MG/ML VIAL INJ (09:28)
[2024-08-31] MEDS: IOHEXOL 240 MG/ML - 10 ML VIAL 24 MG INJ (09:28)
[2024-08-31] MEDS: BUPIVACAINE HCL 0.25% PF 25 MG/10 ML VIAL INJ (09:28)
[2024-08-31] MEDS: LIDOCAINE HCL 2% 400 MG/20 ML MDV 3 ML INJ (09:29)
--- NOTE | 2024-08-31 09:30 | P.ON_ITS ---
Date of procedure: 08/31/24 Pre-op diagnosis: M54.12 Post-op diagnosis: same as pre-op Procedure: Procedure: Left C5-6, C7-T1 transforaminal epidural steroid injection Medications: Bupivacaine 0.25% 1cc, lidocaine 2% 1cc, dexamethasone 10mg The patient was seen and examined in the preoperative holding area.? Informed consent was obtained and placed on the chart.? Patient was brought to the medical procedure unit and placed in the prone position where a timeout was completed verifying the correct patient, procedure site, position, and planned special equipment using sterile aseptic technique.? Under direct fluoroscopic visualization a 25-gauge Quincke tipped spinal needle was advanced to the designated neural foramen where contrast dye was injected to show adequate spread.? The needle was inserted at level left C5-6. There was no evidence of vascular or adverse uptake.? Epidural spread was appreciated.? The above- mentioned injectate was then placed in a 1.5 mL aliquot preceded by negative aspiration.? The needle was removed. The needle was inserted and the procedure repeated at level left C7-T1.? The surgery site was covered.? Patient was taken to the postprocedural recovery area and monitored for an appropriate length of time before found suitable for discharge in the accompaniment of a responsible adult. Anesthesia: Local Surgeon: Farheen Cary Pathology: none sent Condition: stable Disposition: no change
== END 2024-08-31 09:34 | disposition home or self-care (01) ==
LOC: SURGOUT 08:36
PROVIDERS: PCP Internal Medicine; Visit Provider Anesthesiology
DX: M54.12 Radiculopathy, cervical region (principal)
CPT/HCPCS: 64479; 64480; J0665; J1100; Q9966

== ENCOUNTER 2024-09-09 14:26 | Outpatient (OUT) | payer BC, SELFPAY ==
--- OUTSIDE RECORDS SUMMARY | 2024-09-09 14:37 | XMS_ITS | Encounter Summary ---
Author Organization [employer] s tem Address [facility] [id number]-[id number] [address] [place] [address] Care Team Providers Care Trucking Manager Name Role Phone Guille Jackson MD Primary Care Provider [phone] Encounter Details Date Type Department Care Team (Late st Contact Info) Description 07/09/2023 Refill [facility] [address] [place] [address] 1 [place] [phone] Guille Jackson MD [address] [place] [address], [address] [place], [place] [id number] Social History Tobacco Use Types Packs/Day Years [...] EDT Office Visit [facility] [address] [place] [address] [address] [place] [address] Guille Jackson MD [address] [place] [address], [address] [place], [place] [id number] documented as of this encounter Visit Diagnoses Not on filedocumented in this encounter Additional Health Concerns Assessment Noted Time PHQ-9 Depression Total Score: 0 03/12/19 24 8:58 AM EST A Body Mass Index follow-up plan has been documented for the patient 09/22/2020 10:16 AM EDT documented as of this encounter Care Teams Trucking Manager Relationship Specialty Start Date End Date Guille Jackson MD [address] [place] [address], [address] [place] [address] PCP - General Pediatrics 11/07/18 documented as of this encounter
--- OUTSIDE RECORDS SUMMARY | 2024-09-09 14:37 | XMS_ITS | Encounter Summary ---
Author Organization [facility] Address [address] [place] [address] Care Team Providers Care Tech Brazer Tester Name Role Phone Guille Jackson MD Primary Care Provider [phone] Encounter Details Date Type Department Care Team (Late st Contact Info) Description 05/21/2023 Abstract [facility] [address] [place] [phone] Darrell Perez, DPM [address] [place] [address] Social History Tobacco Use Types Packs/Day Years [...] on filedocumented in this encounter Care Teams Tech Brazer Tester Relationship Specialty Start Date End Date Guille Jackson MD PCP - General Family Medicine 08/20/22 documented as of this encounter
--- OUTSIDE RECORDS SUMMARY | 2024-09-09 14:37 | XMS_ITS | Encounter Summary ---
Author Organization [employer] s tem Address [facility] [id number] [address] [place] [address] Care Team Providers Care Photo Retoucher Name Role Phone Guille Jackson MD Primary Care Provider [phone] Encounter Details Date Type Department Care Team (Late st Contact Info) Description 09/19/2023 Refill [facility] [address] [place] [address] 1 [place] [phone] Guille Jackson MD [address] [place] [address], [address] [place], [place] [id number] Social History Tobacco Use Types Packs/Day Years [...] Office Visit [facility] [address] [place] [address] [address] [place] [address] Guille Jackson MD [address] [place] [address], [address] [place], [place] [phone] documented as of this encounter Visit Diagnoses Not on filedocumented in this encounter Additional Health Concerns Assessment Noted Time PHQ-9 Depression Total Score: 0 03/12/19 24 8:58 AM EST A Body Mass Index follow-up plan has been documented for the patient 09/22/2020 10:16 AM EDT documented as of this encounter Care Teams Photo Retoucher Relationship Specialty Start Date End Date Guille Jackson MD [address] [place] [address], [address] [place] [address] PCP - General Pediatrics 11/07/18 documented as of this encounter
--- OUTSIDE RECORDS SUMMARY | 2024-09-09 14:37 | XMS_ITS | Encounter Summary ---
Author Organization [employer] Address [id number] [address] [place] [address] Care Team Providers Care Manager Dialysis Name Role Phone Guille Jackson MD Primary Care Provider [phone] Reason for Visit * Reason Onset Date Comments Med Refill 09/16/2023 Encounter Details Date Type Department Care Team (Late st Contact Info) Description 09/16/2023 Refill [facility] [address] [place] [phone] Guille Jackson MD [address] [place] [address], 1 [place], [place] [phone] Anxiety Social History Tobacco Use Types Packs/Day [...] PM EDT Phone conversation, Wants sent [facility] documented in this encounter Plan of Treatment Upcoming Encounters Date Type Department Care Team (Late st Contact Info) Description 10/22/2024 2:45 PM EDT Office Visit [facility] [address] [place] [address] [address] [place] [address] Guille Jackson MD [address] [place] [address], [address] [place] [id number] documented as of this encounter Visit Diagnoses Diagnosis Anxiety Anxiety state, unspecified documented in this encounter Additional Health Concerns Assessment Noted Time PHQ-9 Depression Total Score: 0 03/12/19 24 8:58 AM EST A Body Mass Index follow-up plan has been documented for the patient 09/22/2020 10:16 AM EDT documented as of this encounter Care Teams Manager Dialysis Relationship Specialty Start Date End Date Guille Jackson MD [address] [place] [address], [address] [place] [address] PCP - General Pediatrics 11/07/18 documented as of this encounter
--- OUTSIDE RECORDS SUMMARY | 2024-09-09 14:37 | XMS_ITS | Encounter Summary ---
Author Organization [employer] Address [id number] [address] [place] [address] Care Team Providers Care Eyeglass Fitter Name Role Phone Guille Jackson MD Primary Care Provider [phone] Reason for Visit * Reason Onset Date Comments Med Refill 12/17/2023 Encounter Details Date Type Department Care Team (Late st Contact Info) Description 12/17/2023 Refill [facility] [address] [place] [address] 1 [place] [phone] Guille Jackson MD [address] [place] [address], 1 [place], [place] [phone] Anxiety Social History Tobacco Use Types Packs/Day [...] EDT Office Visit [facility] [address] [place] [address] [address] [place] [address] Guille Jackson MD [address] [place] [address], [address] [place], [place] [phone] documented as of this encounter Visit Diagnoses Diagnosis Anxiety Anxiety state, unspecified documented in this encounter Additional Health Concerns Assessment Noted Time PHQ-9 Depression Total Score: 0 03/12/19 24 8:58 AM EST A Body Mass Index follow-up plan has been documented for the patient 09/22/2020 10:16 AM EDT documented as of this encounter Care Teams Eyeglass Fitter Relationship Specialty Start Date End Date Guille Jackson MD [address] [place] [address], [address] [place], [place] [phone] PCP - General Pediatrics 11/07/18 documented as of this encounter
--- OUTSIDE RECORDS SUMMARY | 2024-09-09 14:37 | XMS_ITS | Encounter Summary ---
Author Organization [facility] s tem Address [id number] [address] [place] [address] Care Team Providers Care Straw Hat Brusher Name Role Phone Guille Jackson MD Primary Care Provider [phone] Encounter Details Date Type Department Care Team (Late st Contact Info) Description 02/17/2020 Orders Only [facility] [address] [phone] External, Scanning Provider Social History Tobacco Use [...] EDT Office Visit [facility] [address] [place] [address] [address] [place] [address] Guille Jackson MD [address] [place] [address], [address] [place], [place] [phone] documented as of this encounter Procedures Procedure [...] documented as of this encounter Care Teams Straw Hat Brusher Relationship Specialty Start Date End Date Guille Jackson MD [address] [place] [address], [address] [place], [place] [phone] PCP - General Pediatrics 11/07/18 documented as of this encounter
--- OUTSIDE RECORDS SUMMARY | 2024-09-09 14:37 | XMS_ITS | Encounter Summary ---
Author Organization [facility] [employer] [facility] [employer] Address [facility] [id number] [address] [place] [address] Care Team Providers Care Automotive Sales Specialist Name Role Phone Guille Jackson MD Primary Care Provider [phone] Reason for Visit * Reason Onset Date Comments Med Refill 06/07/2023 Encounter Details Date Type Department Care Team (Late st Contact Info) Description 06/07/2023 Refill [facility] [address] [phone] Geri Vidal CMA Social History Tobacco Use [...] EDT Office Visit [facility] [address] [place] [address] [address] [place] [address] Guille Jackson MD [address] [place] [address], [address] [place] [address] documented as of this encounter Visit Diagnoses Not on filedocumented in this encounter Additional Health Concerns Assessment Noted Time PHQ-9 Depression Total Score: 0 03/12/19 24 8:58 AM EST A Body Mass Index follow-up plan has been documented for the patient 09/22/2020 10:16 AM EDT documented as of this encounter Care Teams Automotive Sales Specialist Relationship Specialty Start Date End Date Guille Jackson MD [address] [place] [address], [address] [place] [address] PCP - General Pediatrics 11/07/18 documented as of this encounter
--- OUTSIDE RECORDS SUMMARY | 2024-09-09 14:37 | XMS_ITS | Encounter Summary ---
Author Organization [employer] s tem Address [id number] [address] [place] [address] Care Team Providers Care Dispatcher Clerk Name Role Phone Guille Jackson MD Primary Care Provider [phone] Encounter Details Date Type Department Care Team (Late st Contact Info) Description 07/14/2024 Refill [facility] [address] [place] [address] 1 [place] [phone] Guille Jackson MD [address] [place] [address], [address] [place], [place] [phone] Social History Tobacco Use Types Packs/Day Years [...] EDT Office Visit [facility] [address] [place] [address] [address] [place] [address] Guille Jackson MD [address] [place] [address], [address] [place], [place] [phone] documented as of this encounter Visit Diagnoses Not on filedocumented in this encounter Additional Health Concerns Assessment Noted Time PHQ-9 Depression Total Score: 0 03/12/19 24 8:58 AM EST A Body Mass Index follow-up plan has been documented for the patient 09/22/2020 10:16 AM EDT documented as of this encounter Care Teams Dispatcher Clerk Relationship Specialty Start Date End Date Guille Jackson MD [address] [place] [address], [address] [place] [address] PCP - General Pediatrics 11/07/18 documented as of this encounter
--- OUTSIDE RECORDS SUMMARY | 2024-09-09 14:37 | XMS_ITS | Encounter Summary ---
Author Organization [employer] Address [facility] [id number] [address] [place] [address] Care Team Providers Care Manufacturing Analyst Name Role Phone Guille Jackson MD Primary Care Provider [phone] Reason for Visit * Reason Comments Med Refill Encounter Details Date Type Department Care Team (Late st Contact Info) Description 01/22/2020 Refill [facility] [address] [place] [phone] Guille Jackson MD [address] [place] [address], [address] [place], [place] [phone] Social History Tobacco Use Types Packs/Day Years [...] Internal Medicine/Pediatrics [address] [place] [phone] Guille Jackson MD [address] [place] [address], [address] [place], [place] [phone] documented as of this encounter Visit Diagnoses Not on filedocumented in this encounter Additional Health Concerns Infection Onset Date Last Indicated Resolved Time COVID-19 Positive 01/19/2021 01/19/2021 02/09/2021 11:12 PM EST documented as of this encounter Care Teams Manufacturing Analyst Relationship Specialty Start Date End Date Guille Jackson MD [address] [place] [address], 1 [place] [address] PCP - General Pediatrics 11/07/18 documented as of this encounter
--- OUTSIDE RECORDS SUMMARY | 2024-09-09 14:37 | XMS_ITS | Encounter Summary ---
Author Organization [employer] Address [id number] [address] [place] [address] Care Team Providers Care Waste Removalist Name Role Phone Guille Jackson MD Primary Care Provider [phone] Reason for Visit * Reason Onset Date Comments Med Refill 11/11/2023 Encounter Details Date Type Department Care Team (Late st Contact Info) Description 11/11/2023 Refill [facility] [address] [place] [phone] Guille Jackson MD [address] [place] [address], 1 [place], [place] [phone] Anxiety Social History Tobacco Use Types Packs/Day [...] Office Visit [facility] [address] [place] [address] [address] [place] [address] Guille Jackson MD [address] [place] [address], [address] [place], [place] [phone] documented as of this encounter Visit Diagnoses Diagnosis Anxiety Anxiety state, unspecified documented in this encounter Additional Health Concerns Assessment Noted Time PHQ-9 Depression Total Score: 0 03/12/19 24 8:58 AM EST A Body Mass Index follow-up plan has been documented for the patient 09/22/2020 10:16 AM EDT documented as of this encounter Care Teams Waste Removalist Relationship Specialty Start Date End Date Guille Jackson MD [address] [place] [address], [address] [place] [address] PCP - General Pediatrics 11/07/18 documented as of this encounter
--- OUTSIDE RECORDS SUMMARY | 2024-09-09 14:37 | XMS_ITS | Encounter Summary ---
Author Organization [facility] [employer] Address [facility] [id number] [address] [place] [address] Care Team Providers Care Face Worker Name Role Phone Guille Jackson MD Primary Care Provider [phone] Reason for Visit * Reason Comments Med Refill Encounter Details Date Type Department Care Team (Late st Contact Info) Description 09/19/2023 Refill [facility] [address] [place] [phone] Guille Jackson MD [address] [place] [address], 1 [place], [place] [phone] Anxiety Social History Tobacco Use Types Packs/Day [...] EDT Office Visit [facility] [address] [place] [address] [address] [place] [address] Guille Jackson MD [address] [place] [address], [address] [place] [id number] documented as of this encounter Visit Diagnoses Diagnosis Anxiety Anxiety state, unspecified documented in this encounter Additional Health Concerns Assessment Noted Time PHQ-9 Depression Total Score: 0 03/12/19 24 8:58 AM EST A Body Mass Index follow-up plan has been documented for the patient 09/22/2020 10:16 AM EDT documented as of this encounter Care Teams Face Worker Relationship Specialty Start Date End Date Guille Jackson MD [address] [place] [address], [address] [place], [place] [phone] PCP - General Pediatrics 11/07/18 documented as of this encounter
--- OUTSIDE RECORDS SUMMARY | 2024-09-09 14:37 | XMS_ITS | Clinical Summary ---
Author Organization [employer] tem Address [facility] [id number] [address] [place] [address] Care Team Providers Care Mechanical Artist Name Role Phone Guille Jackson MD Primary Care Provider [phone] Allergies No known active allergies Medications apremilast [...] (05/23/2021): Added automatically from request for surgery [id number] Anxiety 02/05/2020 Gastroesophageal reflux disease without esophagi tis 02/05/2020 Psoriasis Resolved Problems Problem Noted Date Diagnosed Date Resolved Date Screening for colon cancer 09/22/2020 0 04/23/2024 Encounters Date Type Department Care Team Description 08/24/2024 Orders Only [facility] [address] [place] [address] Patricia Espino RMA Herniation of cervical intervertebral disc with radiculopathy 08/17/2024 10:00 AM EDT Office Visit [facility] [address] [place] [address] Guille Jackson MD Herniation of cervical intervertebral disc with radiculopathy (Primary Dx) 08/17/2024 Travel 08/14/2024 Refill [facility] [address] [place] [address] Guille Jackson MD Anxiety 08/03/2024 1:37 PM EDT - 08/03/2024 11:59 PM EDT Hospital Encounter [facility] - MR [address] [place] [address] Herniation of cervical intervertebral disc with radiculopathy Discharge Disposition: Home 08/01/2024 Travel 07/22/2024 Refill [facility] [address] [place] [address] Guille Jackson MD 07/21/2024 Telephone [facility] [address] [place] [address] Guille Jackson MD 07/14/2024 Refill [facility] [address] [place] [address] Guille Jackson MD 07/14/2024 Refill [facility] [address] [place] [address] Guille Jackson MD Anxiety 07/10/2024 3:45 PM EDT Office Visit [facility] [address] [place] [address] Guille Jackson MD Herniation of cervical intervertebral disc with radiculopathy (Primary Dx) 07/10/2024 Travel 06/22/2024 7:40 AM EDT - 06/22/2024 11:59 PM EDT Hospital Encounter [facility] - Lab [address] [place] [address] Routine general medical examination at a health care facility Discharge Disposition: Home 06/22/2024 Refill [facility] [address] [place] [address] Guille Jackson MD 06/22/2024 Travel 06/12/2024 Refill [facility] [address] [place] [address] Guille Jackson MD Anxiety from Last 3 [...] Office Visit [facility] [address] [place] [address] [address] [place] [phone] Guille Jackson MD [facility], [address] [place], [place] [phone] Health Maintenance Due Date Last Done Comments [...] Date/Time Associated Diagnosis Comments AMB REFERRAL TO PAIN MANAGEMENT Routine 08/24/2024 Herniation of cervical intervertebral disc with radiculopathy MR CERVICAL SPINE WO CONT Routine 08/03/2024 [...] Recently Relevant to Health Maintenance Results * Ambulatory referral to Pain Management ([facility]) (08/24/2024) 08/24/2024 us Guille Jackson MD OUTPATIENT REFERRAL ORDERABLE S Final Result MANUALLY TRANSCRIBED RESULTS * MR cervical spine without contrast (08/03/2024 [...] Marge Mckeon MD on 08/06/2024 3:21 PM Guille Jackson MD IMG MRI ORDERABLES Final Resu lt * Prostatic specific antigen screen (06/22/2024 7:42 AM EDT) [facility] Prostatic specific antigen, screen 2.39 0.00 - 4.00 ng/mL 06/22/2024 2:29 PM EDT [facility] Comment: The method used for this test is GraphLab DXI chemiluminescent immunoassay. Values obtained by different assay methods cannot be used interchangeably. Serum / Unknown 06/22/2024 7 :42 AM EDT 06/22/2024 7:43 AM EDT Guille Jackson MD LAB BLOOD ORDERABLES Final Re sult [facility] [address] [facility] [facility], [address] [place] [address] * (ABNORMAL) Lipid profile (06/22/2024 7:42 AM EDT) [facility] Cholesterol 143(L) 150 - 200 mg/dL 06/22/2024 2:22 PM EDT [facility] Triglycerides 100 27 - 150 mg/dL 06/22/2024 2:22 PM EDT [facility] HDL Cholesterol 44 >39 mg/dL 2:22 PM EDT [facility] Comment: HDL <40 mg/dL - High Risk HDL > or = 40mg/dL- Desirable HDL >60 mg/dL - Negative Risk VLDL 20 0 - 30 mg/dL 06/22/2024 2:22 PM EDT [facility] LDL (calc) 79 <130 mg/dL 06/22/2024 2:22 PM EDT [facility] Comment: LDL <100 mg/dL - Desirable LDL >160 mg/dL - High Risk Cholesterol:HDL Ratio 3.3 1.0 - 5.0 06/22/2024 2:22 PM EDT [facility] Blood (PLASMA) 06/22/2024 7: 42 AM EDT 06/22/2024 7:43 AM EDT us Guille Jackson MD LAB BLOOD ORDERABLES Final Re sult [facility] [address] [facility] [place] [address] * Comprehensive metabolic panel (06/22/2024 7:42 AM EDT) Sodium 141 134 - 146 mmol/L 06/22/2024 2:22 PM [facility] Potassium, Bld 4.3 3.5 - 5.0 mmol/L 06/22/2024 2:22 PM [facility] Chloride 103 98 - 109 mmol/L 06/22/2024 2:22 PM [facility] CO2 31 22 - 32 mmol/L 06/22/2024 2:[facility] Anion gap 7 5 - 15 mmol/L 06/22/2024 2:22 PM [facility] BUN 15 5 - 23 mg/dL 06/22/2024 2:22 PM [facility] Creatinine 0.96 0.60 - 1.30 mg/dL 06/22/2024 2:22 PM EDT [facility] Comment:METHOD TRACEABLE TO IDMS STANDARD Glucose 99 65 - 99 mg/dL 06/22/2024 2:22 PM [facility] Calcium 9.6 8.5 - 10.5 mg/dL 06/22/2024 2:22 PM EDT [facility] Total Protein 6.9 6.0 - 8.0 g/dL 06/22/2024 2:22 PM EDT [facility] Albumin 4.3 3.2 - 5.3 g/dL 06/22/2024 2:22 PM EDT [facility] Alkaline Phosphatase 41 39 - 130 U/L 06/22/2024 2:22 PM EDT [facility] AST 15 0 - 41 U/L 06/22/2024 2:22 PM EDT [facility] ALT 17 0 - 40 U/L 06/22/2024 2:22 PM EDT [facility] Total bilirubin 0.4 0.3 - 1.2 mg/dL 06/22/2024 2:22 PM EDT [facility] eGFR (CKD-EPI)non-rac e dependent >90 >59 ml/min/1.7 3sq.m 06/22/2024 2:22 PM EDT [facility] Comment: Reported eGFR is based on the CKD-EPI 2020 equation that does not use a race coefficient. Blood (PLASMA) 06/22/2024 7: 42 AM EDT 06/22/2024 7:43 AM EDT us Guille Jackson MD LAB BLOOD ORDERABLES Final Re sult Performing Organization Address City/[facility]/ZIP Co de Phone Number [facility] [address] [address] [place] [address] * HM COLONOSCOPY (10/10/2020) 10/10/2020 us Scanning Provider External HEALTH MAINTENANCE Fi nal Result MANUALLY TRANSCRIBED RESULTS from Last 3 Months or Most Recently Relevant to Health Maintenance Insurance [employer] Care Teams Mechanical Artist Relationship Specialty Start Date End Date Guille Jackson MD [address] [place] [address], 1 [place] [address] PCP - General Pediatrics 11/07/18
--- OUTSIDE RECORDS SUMMARY | 2024-09-09 14:37 | XMS_ITS | Encounter Summary ---
Author Organization [facility] Address [address] [place] [address] Care Team Providers Care Technical Training Specialist Name Role Phone Guille Jackson MD Primary Care Provider [phone] Encounter Details Date Type Department Care Team (Late st Contact Info) Description 05/21/2023 Abstract [facility] [address] [place] [address] Darrell Perez, DPM [address] [place] [address] Social History Tobacco Use Types Packs/Day Years [...] on filedocumented in this encounter Care Teams Technical Training Specialist Relationship Specialty Start Date End Date Guille Jackson MD PCP - General Family Medicine 08/20/22 documented as of this encounter
--- OUTSIDE RECORDS SUMMARY | 2024-09-09 14:38 | XMS_ITS | Encounter Summary ---
Author Organization [facility] [employer] tem Address [id number] [address] [place] [address] Care Team Providers Care Shop And Alteration Tailor Name Role Phone Guille Jackson MD Primary Care Provider [phone] Encounter Details Date Type Department Care Team (Late st Contact Info) Description 01/31/2021 Orders Only [facility] [address] [phone] External, Scanning Provider Social History Tobacco Use [...] EDT Office Visit [facility] [address] [place] [address] [address] [place] [address] Guille Jackson MD [address] [place] [address], [address] [place], [place] [phone] documented as of this encounter Procedures Procedure [...] documented as of this encounter Care Teams Shop And Alteration Tailor Relationship Specialty Start Date End Date Guille Jackson MD [facility], [address] [place] [address] PCP - General Pediatrics 11/07/18 documented as of this encounter
--- OUTSIDE RECORDS SUMMARY | 2024-09-09 14:38 | XMS_ITS | Encounter Summary ---
Author Organization [facility] [employer] [facility] tem Address [id number] [address] [place] [address] Care Team Providers Care Structural Metal Fabricator Apprentice Name Role Phone Guille Jackson MD Primary Care Provider [phone] Encounter Details Date Type Department Care Team (Late st Contact Info) Description 12/12/2020 Orders Only [facility] [address] [phone] External, Scanning Provider Social History Tobacco Use [...] Office Visit [facility] [address] [place] [address] [address] [place] [address] Guille Jackson MD [address] [place] [address], [address] [place] [address] documented as of this encounter [...] documented as of this encounter Care Teams Structural Metal Fabricator Apprentice Relationship Specialty Start Date End Date Guille Jackson MD [address] [place] [address], [address] [place] [address] PCP - General Pediatrics 11/07/18 documented as of this encounter
--- OUTSIDE RECORDS SUMMARY | 2024-09-09 14:38 | XMS_ITS | Encounter Summary ---
Author Organization [employer] [facility] tem Address [id number] [address] [place] [address] Care Team Providers Care Reserve Officer Name Role Phone Guille Jackson MD Primary Care Provider [phone] Encounter Details Date Type Department Care Team (Late st Contact Info) Description 08/24/2024 Orders Only [facility] [address] [phone] Patricia Espino RMA Herniation of cervical intervertebral disc with radiculopathy Social History Tobacco Use Types Packs/Day Years [...] Office Visit [facility] [address] [place] [address] Guille Jackson MD [address] [place] [address], 1 [place] [id number] documented as of this encounter Procedures Procedure Name Priority Date/Time Associated Diagnosis Comments AMB REFERRAL TO PAIN MANAGEMENT Routine 08/24/2024 Herniation of cervical intervertebral disc with radiculopathy documented in this encounter Results * Ambulatory referral to Pain Management ([facility]) (08/24/2024) 08/24/2024 us Guille Jackson MD OUTPATIENT REFERRAL ORDERABLE S Final Result MANUALLY TRANSCRIBED RESULTS documented in this encounter Visit Diagnoses Diagnosis Herniation of cervical intervertebral disc with radiculopathy documented in this encounter Additional Health Concerns Assessment Noted Time PHQ-9 Depression Total Score: 0 03/12/19 24 8:58 AM EST A Body Mass Index follow-up plan has been documented for the patient 09/22/2020 10:16 AM EDT documented as of this encounter Care Teams Reserve Officer Relationship Specialty Start Date End Date Guille Jackson MD [address] [place] [address], [address] [place] [address] PCP - General Pediatrics 11/07/18 documented as of this encounter
--- OUTSIDE RECORDS SUMMARY | 2024-09-09 14:38 | XMS_ITS | Encounter Summary ---
Author Organization [employer] tem Address [facility] [id number] [address] [place] [address] Care Team Providers Care Reference Investigator Name Role Phone Guille Jackson MD Primary Care Provider [phone] Encounter Details Date Type Department Care Team (Late st Contact Info) Description 03/23/2021 Orders Only [facility] [address] [place] [address] 1 [place] [phone] Guille Jackson MD [address] [place] [address], [address] [place], [place] [phone] Right foot pain Social History Tobacco Use [...] Office Visit [facility] [address] [place] [address] [address] [place] [address] Guille Jackson MD [facility]5 [facility], [address] [place], [place] [phone] documented as of this encounter Procedures Procedure [...] documented as of this encounter Care Teams Reference Investigator Relationship Specialty Start Date End Date Guille Jackson MD [facility]5 [facility], [address] [place], [place] [phone] PCP - General Pediatrics 11/07/18 documented as of this encounter
--- OUTSIDE RECORDS SUMMARY | 2024-09-09 14:38 | XMS_ITS | Encounter Summary ---
Author Organization [employer] Address [facility] [id number] [address] [place] [address] Care Team Providers Care Psychologists Name Role Phone Guille Jackson MD Primary Care Provider [phone] Reason for Visit * Reason Onset Date Comments Med Refill 05/29/2021 Encounter Details Date Type Department Care Team (Late st Contact Info) Description 05/29/2021 Refill [facility] [address] [place] [phone] Guille Jackson MD [address] [place] [address], 1 [place], [place] [phone] Anxiety Social History Tobacco Use Types Packs/Day [...] EDT Office Visit [facility] [address] [place] [address] [address] [place] [phone] Guille Jackson MD [address] [place] [address], [address] [place], [place] [phone] documented as of this encounter Visit Diagnoses Diagnosis Anxiety Anxiety state, unspecified documented in this encounter Additional Health Concerns Assessment Noted Time PHQ-9 Depression Total Score: 0 12/23/19 21 10:00 AM EDT A Body Mass Index follow-up plan has been documented for the patient 09/22/2020 10:16 AM EDT documented as of this encounter Care Teams Psychologists Relationship Specialty Start Date End Date Guille Jackson MD [address] [place] [address], [address] [place], [place] [phone] PCP - General Pediatrics 11/07/18 documented as of this encounter
--- OUTSIDE RECORDS SUMMARY | 2024-09-09 14:38 | XMS_ITS | Encounter Summary ---
Author Organization [employer] Address [facility] [id number] [address] [place] [address] Care Team Providers Care Dairy Tester Name Role Phone Guille Jackson MD Primary Care Provider [phone] Reason for Visit * Reason Onset Date Comments Med Refill 12/16/2022 Encounter Details Date Type Department Care Team (Late st Contact Info) Description 12/16/2022 Refill [facility] [address] [place] [phone] Guille Jackson MD [address] [place] [address], 1 [place], [place] [phone] Anxiety Social History Tobacco Use Types Packs/Day [...] EDT Office Visit [facility] [address] [place] [address] [address] [place] [phone] Guille Jackson MD [address] [place] [address], [address] [place], [place] [phone] documented as of this encounter Visit Diagnoses Diagnosis Anxiety Anxiety state, unspecified documented in this encounter Additional Health Concerns Assessment Noted Time PHQ-9 Depression Total Score: 0 12/23/19 10:00 AM EDT A Body Mass Index follow-up plan has been documented for the patient 09/22/2020 10:16 AM EDT documented as of this encounter Care Teams Dairy Tester Relationship Specialty Start Date End Date Guille Jackson MD [address] [place] [address], [address] [place], [place] [phone] PCP - General Pediatrics 11/07/18 documented as of this encounter
--- OUTSIDE RECORDS SUMMARY | 2024-09-09 14:38 | XMS_ITS | Encounter Summary ---
Author Organization [facility] Address [address] [place] [address] Care Team Providers Care System Operation Superintendent Name Role Phone Guille Jackson MD Primary Care Provider [phone] Encounter Details Date Type Department Care Team (Late st Contact Info) Description 09/06/2022 Abstract [facility] [address] [place] [phone] Darrell Perez, DPM [address] [place] [address] Social History Tobacco Use Types Packs/Day Years [...] on filedocumented in this encounter Care Teams System Operation Superintendent Relationship Specialty Start Date End Date Guille Jackson MD PCP - General Family Medicine 08/20/22 documented as of this encounter
--- OUTSIDE RECORDS SUMMARY | 2024-09-09 14:38 | XMS_ITS | Encounter Summary ---
Author Organization [facility] Address [facility] [id number] [address] [place] [address] Care Team Providers Care Cotton Classer Name Role Phone Guille Jackson MD Primary Care Provider [phone] Reason for Visit * Reason Comments Med Refill Encounter Details Date Type Department Care Team (Late st Contact Info) Description 08/21/2021 Refill [facility] [address] [place] [phone] Guille Jackson MD [address] [place] [address], 1 [place], [place] [phone] Social History Tobacco Use Types Packs/Day Years [...] Office Visit [facility] [address] [place] [address] [address] [place] [phone] Guille Jackson MD [address] [place] [address], [address] [place] [address] documented as of this encounter Visit Diagnoses Not on filedocumented in this encounter Additional Health Concerns Assessment Noted Time PHQ-9 Depression Total Score: 0 12/23/19 21 10:00 AM EDT A Body Mass Index follow-up plan has been documented for the patient 09/22/2020 10:16 AM EDT documented as of this encounter Care Teams Cotton Classer Relationship Specialty Start Date End Date Guille Jackson MD [address] [place] [address], [address] [place], [place] [phone] PCP - General Pediatrics 11/07/18 documented as of this encounter
--- OUTSIDE RECORDS SUMMARY | 2024-09-09 14:38 | XMS_ITS | Encounter Summary ---
Author Organization [employer] tem Address [facility] [id number] [address] [place] [address] Care Team Providers Care Mold Engraver Name Role Phone Guille Jackson MD Primary Care Provider [phone] Encounter Details Date Type Department Care Team (Late st Contact Info) Description 05/17/2021 Orders Only [facility] [address] [place] [address] 1 [place] [phone] Guille Jackson MD [address] [place] [address], [address] [place], [place] [phone] Cervical myelopathy ([facility] Social History Tobacco Use Types Packs/Day [...] EDT Office Visit [facility] [address] [place] [address] [address] [place] [phone] Guille Jackson MD [address] [place] [address], [address] [place] [address] documented as of this encounter Procedures Procedure Name Priority Date/Time Associated Diagnosis Comments AMB REFERRAL TO NEUROSURGERY Routine 05/17/2021 Cervical myelopathy ([facility]) documented in this encounter Results * [...] documented as of this encounter Care Teams Mold Engraver Relationship Specialty Start Date End Date Guille Jackson MD [facility]5 [facility], [address] [place] [address] PCP - General Pediatrics 11/07/18 documented as of this encounter
--- OUTSIDE RECORDS SUMMARY | 2024-09-09 14:38 | XMS_ITS | Encounter Summary ---
Author Organization [facility] [employer] tem Address [facility] [id number][id number] [address] [place] [address] Care Team Providers Care Fresh Work Inspector Name Role Phone Guille Jackson MD Primary Care Provider [phone] Encounter Details Date Type Department Care Team (Late st Contact Info) Description 10/12/2021 Orders Only [facility] [address] [phone] External, Scanning Provider Social History Tobacco Use [...] Office Visit [facility] [address] [place] [address] [address] [place] [phone] Guille Jackson MD [address] [place] [address], [address] [place], [place] [phone] documented as of this encounter Procedures Procedure [...] documented as of this encounter Care Teams Fresh Work Inspector Relationship Specialty Start Date End Date Guille Jackson MD [address] [place] [address], [address] [place] [address] PCP - General Pediatrics 11/07/18 documented as of this encounter
--- OUTSIDE RECORDS SUMMARY | 2024-09-09 14:38 | XMS_ITS | Encounter Summary ---
Author Organization [facility] [employer] tem Address [facility]-[id number] [address] [place] [address] Care Team Providers Care Glass Ribbon Machine Operator Assistant Name Role Phone Guille Jackson MD Primary Care Provider [phone] Encounter Details Date Type Department Care Team (Late st Contact Info) Description 01/20/2021 Orders Only [facility] [address] [phone] External, Scanning Provider Social History Tobacco Use [...] EDT Office Visit [facility] [address] [place] [address] [address] [place] [phone] Guille Jackson MD [address] [place] [address], [address] [place] [phone] documented as of this encounter Procedures Procedure [...] documented as of this encounter Care Teams Glass Ribbon Machine Operator Assistant Relationship Specialty Start Date End Date Guille Jackson MD [address] [place] [address], [address] [place] [address] PCP - General Pediatrics 11/07/18 documented as of this encounter
--- OUTSIDE RECORDS SUMMARY | 2024-09-09 14:38 | XMS_ITS | Encounter Summary ---
Author Organization [employer] Address [id number] [address] [place] [address] Care Team Providers Care Civil Technician Name Role Phone Guille Jackson MD Primary Care Provider [phone] Reason for Visit * Reason Onset Date Comments Med Refill 12/04/2021 Encounter Details Date Type Department Care Team (Late st Contact Info) Description 12/04/2021 Refill [facility] [address] [place] [phone] Guille Jackson MD [address] [place] [address], [address] [place], [place] [phone] Anxiety Social History Tobacco Use Types Packs/Day [...] Office Visit [facility] [address] [place] [address] [address] [place] [address] Guille Jackson MD [address] [place] [address], [address] [place], [place] [phone] documented as of this encounter Visit Diagnoses Diagnosis Anxiety Anxiety state, unspecified documented in this encounter Additional Health Concerns Assessment Noted Time PHQ-9 Depression Total Score: 0 12/23/19 21 10:00 AM EDT A Body Mass Index follow-up plan has been documented for the patient 09/22/2020 10:16 AM EDT documented as of this encounter Care Teams Civil Technician Relationship Specialty Start Date End Date Guille Jackson MD [address] [place] [address], [address] [place] [address] PCP - General Pediatrics 11/07/18 documented as of this encounter
--- OUTSIDE RECORDS SUMMARY | 2024-09-09 14:38 | XMS_ITS | Clinical Summary ---
Author Organization [facility] Healthcare Address [address] [place] [address] Care Team Providers Care Certified Nurses' Aide Name Role Phone Guille Jackson MD Primary Care Provider [phone] Allergies No known active allergies Medications ALPRAZolam [...] (08/21/2022): Added automatically from request for surgery [id number] Gastroesophageal reflux disease without esophagi tis 02/05/2020 [...] 1970 FOBT 1970 Sigmoidoscopy 1970 Influenza Vaccine (#1) 2024 Insurance [employer] Care Teams Certified Nurses' Aide Relationship Specialty Start Date End Date Guille Jackson MD PCP - General Family Medicine 08/20/22
--- OUTSIDE RECORDS SUMMARY | 2024-09-09 14:38 | XMS_ITS | Encounter Summary ---
Author Organization [employer] [facility] tem Address [facility] [id number] [address] [place] [address] Care Team Providers Care Crew Mess Attendant Name Role Phone Guille Jackson MD Primary Care Provider [phone] Encounter Details Date Type Department Care Team (Late st Contact Info) Description 03/01/2021 Telephone [facility] [address] [phone] Geri Vidal CMA Social History Tobacco Use [...] Office Visit [facility] [address] [place] [address] [address] [place] [phone] Guille Jackson MD [address] [place] [address], [address] [place], [place] [id number] documented as of this encounter Visit Diagnoses Not on filedocumented in this encounter Additional Health Concerns Assessment Noted Time PHQ-9 Depression Total Score: 0 12/23/19 10:00 AM EDT A Body Mass Index follow-up plan has been documented for the patient 09/22/2020 10:16 AM EDT documented as of this encounter Care Teams Crew Mess Attendant Relationship Specialty Start Date End Date Guille Jackson MD [address] [place] [address], [address] [place], [place] [id number] PCP - General Pediatrics 11/07/18 documented as of this encounter
--- NOTE | 2024-09-09 14:57 | PM.CN ---
Consult Note: HPI Data of Consult Patient: known to practice within the last 3 years Requesting Physician: Connie Coleman NP Primary Care Provider: SHERRON DOWLING Consult Narrative Reason for consult: left neck, shoulder, arm pain Narrative: 54yom who presents for evaluation. worsening pain that radiates from neck into left shoulder and left arm. notes numbness and tingling primarily in third through fifth fingers of left hand. imaging reviewed, significant for multilevel spondylosis, as well as moderate stenosis at c5-6 and c7-t1. has completed physical therapy, currently continues in chiropractic therapy. uses otc meds as needed. recently underwent left C5-6 C7-T1 TFESI with significant ongoing relief, pain 1/10 increasing to 1/10. reports tingling to left lateral arm and last 2 digits on left hand. has resumed working out at the gym. cc:: CC: Connie Coleman NP [facility] Medical History (Updated 08/24/24 @ 15:26 by Elizabeth Simons) Former smoker, stopped smoking in distant past ?Z87.891 - Personal history of nicotine dependence (ICD-10) High blood cholesterol level ?E78.00 - Pure hypercholesterolemia, unspecified (ICD-10) Meds Home Medications and Allergies Home Medications ?Medication ?Instructions ?Recorded ?Confirmed ?Type alprazolam 0.5 mg tablet 0.5 mg PO DAILY 08/24/24 08/31/24 History apremilast 30 mg tablet (Otezla) 30 mg PO BID 08/24/24 08/31/24 History atorvastatin 20 mg tablet 20 mg PO DAILY 08/24/24 08/31/24 History omeprazole 20 mg capsule,delayed 20 mg PO DAILY 08/24/24 08/31/24 History release Allergies Allergy/AdvReac Type Severity Reaction Status Date / Time No Known Drug Allergies Allergy Verified 08/31/24 08:42 Exam Constitutional Documenting provider has reviewed patient's vital signs: yes Common normals: no apparent distress, oriented x3, healthy appearing, alert and well nourished General appearance: cooperative [facility] Common normals: normocephalic, hearing grossly normal bilaterally and moist oral mucous membranes Head and scalp: normocephalic Eye Common normals: PERRL Pupil: PERRL Neck & C-Spine Common normals: full ROM General: normal visual inspection Cervical spine: cervical ROM normal; no pain with cervical ROM Other: negative spurlings strength 5/5 in BUE sensation intact BUE Chest Common normals: inspection of chest normal Respiratory Common normals: normal respiratory effort, no retractions and no use of accessory muscles Neuro Common normals: oriented x3 Sensorium/orientation: alert Psych Common normals: mental status grossly normal, thought process normal, cooperative, affect normal, speech normal and activity/motor behavior normal Speech: normal speech Thought process: normal thought process Results Additional Findings Additional findings: If on a controlled substance or opioids, I have checked an OARRS report on this patient and there are no aberrancies noted in the prescribing history.??If on a controlled substance or opioid a drug screen was completed and reviewed within the last year, and if there has not been a drug screen completed we ordered one today to monitor higher risk, state monitored pain medication use. As part of providing excellent, safe, comprehensive care, the following was completed at our patient's visit: 1. A medication reconciliation and review to ensure accurate knowledge of current/active medications, including asking our patients to inform us about any [id number] medications or herbal remedies/nutritional supplements/alternative remedies. 2. A review to specifically ensure our patients have had annual screening for screening for depression, screening for tobacco use, and screening for unhealthy alcohol use. For concerning screenings had a discussion with the patient, provided patient education, and recommended follow-up with primary care provider when appropriate. If patient noted with a risk of falling, they received education on strength, gait, and balance training to prevent future risk of falling. Portions of this note may have been carried over from the previous visit and updated as appropriate. Please note this office utilizes paper charting in addition to the electronic medical record. A list of current medications, vitals, and PMH is available there as the clinical staff outside of myself do not have access to [employer] charting during the clinic day operations. As part of providing quality comprehensive care the current medications, vitals, and PMH were reviewed in the paper chart. Assessment and Plan Assessment and Plan (1) Cervical radiculopathy: Assessment and Plan: 08/31/24 left C5-6 C7-T1 TFESI with >80% improvement ongoing (2) Cervical stenosis of spinal canal: Plan continue HEP as tolerated can continue patient care specialist PRN, advised pt to stop if neurological symptoms including weakness/tingling or pain get worse continue current medications f/u 3 months, sooner if needed
== END 2024-09-09 14:27 | disposition home or self-care (01) ==
LOC: PM 14:27
PROVIDERS: PCP Internal Medicine; Visit Provider Nurse Practitioner
DX: M54.12 Radiculopathy, cervical region (principal); M48.02 Spinal stenosis, cervical region
CPT/HCPCS: G0463

== ENCOUNTER 2024-12-10 14:19 | Outpatient (OUT) | payer BC, SELFPAY ==
--- NOTE | 2024-12-10 15:06 | PM.CN ---
Consult Note: HPI Data of Consult Patient: known to practice within the last 3 years Requesting Physician: Connie Coleman NP Primary Care Provider: SHERRON DOWLING Consult Narrative Reason for consult: left neck, shoulder, arm pain Narrative: 54yom who presents for evaluation. worsening pain that radiates from neck into left shoulder and left arm. notes numbness and tingling primarily in third through fifth fingers of left hand. imaging reviewed, significant for multilevel spondylosis, as well as moderate stenosis at c5-6 and c7-t1. has completed physical therapy, currently continues in chiropractic therapy. uses otc meds as needed. recently underwent left C5-6 C7-T1 TFESI with >50% improvement greater than 3 months. pain 2-3/10 increasing to 5/10. reports tingling to left lateral arm and last 2 digits on left hand. cc:: CC: Connie Coleman NP [facility] Medical History (Updated 08/24/24 @ 15:26 by Elizabeth Simons) Former smoker, stopped smoking in distant past ?Z87.891 - Personal history of nicotine dependence (ICD-10) High blood cholesterol level ?E78.00 - Pure hypercholesterolemia, unspecified (ICD-10) Meds Home Medications and Allergies Home Medications ?Medication ?Instructions ?Recorded ?Confirmed ?Type alprazolam 0.5 mg tablet 0.5 mg PO DAILY 08/24/24 08/31/24 History apremilast 30 mg tablet (Otezla) 30 mg PO BID 08/24/24 08/31/24 History atorvastatin 20 mg tablet 20 mg PO DAILY 08/24/24 08/31/24 History omeprazole 20 mg capsule,delayed 20 mg PO DAILY 08/24/24 08/31/24 History release Allergies Allergy/AdvReac Type Severity Reaction Status Date / Time No Known Drug Allergies Allergy Verified 08/31/24 08:42 Exam Constitutional Documenting provider has reviewed patient's vital signs: yes Common normals: no apparent distress, oriented x3, healthy appearing, alert and well nourished General appearance: cooperative [facility] Common normals: normocephalic, hearing grossly normal bilaterally and moist oral mucous membranes Head and scalp: normocephalic Eye Common normals: PERRL Pupil: PERRL Neck & C-Spine Common normals: full ROM General: normal visual inspection Cervical spine: cervical ROM normal and pain with cervical ROM Other: positive spurlings decreased sensation left C5,6,7 strength 4.5/5 in LUE and 5/5 in RUE Chest Common normals: inspection of chest normal Respiratory Common normals: normal respiratory effort, no retractions and no use of accessory muscles Neuro Common normals: oriented x3 Sensorium/orientation: alert Psych Common normals: mental status grossly normal, thought process normal, cooperative, affect normal, speech normal and activity/motor behavior normal Speech: normal speech Thought process: normal thought process Results Additional Findings Additional findings: If on a controlled substance or opioids, I have checked an OARRS report on this patient and there are no aberrancies noted in the prescribing history.??If on a controlled substance or opioid a drug screen was completed and reviewed within the last year, and if there has not been a drug screen completed we ordered one today to monitor higher risk, state monitored pain medication use. As part of providing excellent, safe, comprehensive care, the following was completed at our patient's visit: 1. A medication reconciliation and review to ensure accurate knowledge of current/active medications, including asking our patients to inform us about any [id number]-qsf-[id number] medications or herbal remedies/nutritional supplements/alternative remedies. 2. A review to specifically ensure our patients have had annual screening for screening for depression, screening for tobacco use, and screening for unhealthy alcohol use. For concerning screenings had a discussion with the patient, provided patient education, and recommended follow-up with primary care provider when appropriate. If patient noted with a risk of falling, they received education on strength, gait, and balance training to prevent future risk of falling. Portions of this note may have been carried over from the previous visit and updated as appropriate. Please note this office utilizes paper charting in addition to the electronic medical record. A list of current medications, vitals, and PMH is available there as the clinical staff outside of myself do not have access to [employer] charting during the clinic day operations. As part of providing quality comprehensive care the current medications, vitals, and PMH were reviewed in the paper chart. Assessment and Plan Assessment and Plan (1) Cervical radiculopathy: Assessment and Plan: 08/31/24 left C5-6 C7-T1 TFESI with >50% improvement for at least 3 months The patient has had over 3 months of moderate to severe neck and LUE pain with functional impairment and inadequate response to conservative care including NSAIDS (unless there are contraindication such as concurrent blood thinners), multiple oral or topical pain medications, and home exercise program/physical therapy.? Patient has completed >6 weeks of guided home exercise program and/or formal physical therapy program without relief of their symptoms.? I have reviewed the imaging of the cervical spine and no red flags were identified.? The imaging reveals radiographic findings consistent with cervical stenosis/cervical radiculopathy? The Oswestry Disability Index was completed, and the patient scored a 4%.? (2) Cervical stenosis of spinal canal: Plan dc motrin, start meloxicam 7.5mg bid prn pain with food repeat left C5-6 C7-T1 TFESI under fluoroscopy continue HEP as tolerated can continue care services manager PRN, advised pt to stop if neurological symptoms including weakness/tingling or pain get worse f/u 2 weeks after CHERY
== END 2024-12-10 14:20 | disposition home or self-care (01) ==
LOC: PM 14:19
PROVIDERS: PCP Internal Medicine; Visit Provider Nurse Practitioner
DX: M54.12 Radiculopathy, cervical region (principal); M48.02 Spinal stenosis, cervical region
CPT/HCPCS: G0463

== ENCOUNTER 2024-12-21 11:17 | Day surgery (SDC) | payer BC, SELFPAY ==
[2024-12-21 11:34] VITALS: BP 149/86; PULSE 93; TEMP 36.8; O2SAT 96
[2024-12-21 12:11] VITALS: PULSE 96; O2SAT 100
[2024-12-21 12:12] VITALS: BP 173/91; BP 177/88; PULSE 95; O2SAT 100
[2024-12-21] MEDS: IOHEXOL 240 MG/ML - 10 ML VIAL INJ (12:14)
[2024-12-21] MEDS: LIDOCAINE HCL 2% 400 MG/20 ML MDV INJ (12:14)
[2024-12-21] MEDS: BUPIVACAINE HCL 0.25% PF 25 MG/10 ML VIAL INJ (12:14)
[2024-12-21] MEDS: DEXAMETHASONE SOD PHOS 10 MG/ML VIAL INJ (12:14)
--- NOTE | 2024-12-21 12:21 | P.ON_ITS ---
Date of procedure: 12/21/24 Pre-op diagnosis: M54.12 Post-op diagnosis: same as pre-op Procedure: Procedure: Left C5-6, C7-T1 transforaminal epidural steroid injection Medications: Bupivacaine 0.25% 1cc, lidocaine 2% 1cc, dexamethasone 10mg The patient was seen and examined in the preoperative holding area.? Informed consent was obtained and placed on the chart.? Patient was brought to the medical procedure unit and placed in the prone position where a timeout was completed verifying the correct patient, procedure site, position, and planned special equipment using sterile aseptic technique.? Under direct fluoroscopic visualization a 25-gauge Quincke tipped spinal needle was advanced to the designated neural foramen where contrast dye was injected to show adequate spread.? The needle was inserted at level left C5-6. There was no evidence of vascular or adverse uptake.? Epidural spread was appreciated.? The above- mentioned injectate was then placed in a 1.5 mL aliquot preceded by negative aspiration.? The needle was removed. The needle was inserted and the procedure repeated at level left C7-T1.? The surgery site was covered.? Patient was taken to the postprocedural recovery area and monitored for an appropriate length of time before found suitable for discharge in the accompaniment of a responsible adult. Anesthesia: Local Surgeon: Farheen Cary Pathology: none sent Condition: stable Disposition: no change
== END 2024-12-21 12:19 | disposition home or self-care (01) ==
PROVIDERS: PCP Internal Medicine; Visit Provider Anesthesiology
DX: M54.12 Radiculopathy, cervical region (principal)
CPT/HCPCS: 64479; 64480; J0665; J1100; Q9966